=== PATIENT | male | born 1945 | race Caucasian/White ===

== ENCOUNTER 2021-11-14 17:24 | Inpatient (IN) | payer MEDICARE ==
[~2021-11-14] VITALS: Ht 180.3 cm; Wt 72.6 kg
--- NOTE | 2021-11-14 17:40 | NUR ---
PT WHEELED TO ED BED 13 FROM THE WAITING ROOM, PER ADMITTING WAS BIB FACILITY STAFF FOR PSYCH EVAL AND POSSIBLE GEROPSYCH ADMIT. PT IS VERBALLY RESPONSIVE. AAOX3. STABLE VITALS. AWAITINGMD EVAL.
--- NOTE | 2021-11-14 17:46 | NUR ---
CALLED [facility] [phone] MARCELINO Grupo [address] [place] [address] MEMORY CARE UNIT VIOLENT AGRESSIVE DELMER WILL FAX H&P DR. JOSE MUÑIZ CONSULTED WITH DR. KENDRICK AND RECOMMENDED FOR ADMISSION TO GPS TO BE PLACED ON HOLD DTO.
--- NOTE | 2021-11-14 17:54 | NUR ---
DR LEMA AT BEDSIDE FOR EVAL.
--- NOTE | 2021-11-14 18:13 | NUR ---
CFD ENGINEER AT BEDSIDE FOR BLOOD DRAW.
--- NOTE | 2021-11-14 18:25 | NUR ---
COVID SPECIMEN OBTAINED AND SENT TO LAB.
--- NOTE | 2021-11-14 18:54 | NUR ---
URINAL GIVEN BUT UNABLE TO PROVIDE URINE SPECIMEN THIS TIME.
[2021-11-14 20:00] LABS: ALANINE AMINOTRANSFERASE 12 U/L (12-78); ALBUMIN 3.3 g/dL (3.4-5.0); ALKALINE PHOSPHATASE 91 U/L (46-116); ASPARTATE AMINOTRANSFERASE 10 U/L (15-37); BILIRUBIN,DIRECT 0.1 mg/dL (0.0-0.2); CALCIUM, SERUM 9.1 mg/dL (8.5-10.1); CARBON DIOXIDE 30 mmol/L (21-32); CHLORIDE 102 mmol/L (98-107); CREATININE 0.8 mg/dL (0.6-1.3); GLUCOSE 111 mg/dL (74-106); POTASSIUM 4.4 mmol/L (3.5-5.1); SODIUM SERUM 137 mmol/L (136-145); TOTAL PROTEIN, SERUM 7.4 g/dL (6.4-8.2); UREA NITROGEN, BLOOD 13 mg/dL (7-18)
[2021-11-14 20:01] LABS: ACETAMINOPHEN 0 ug/ml (10-30); ALCOHOL, BLOOD < 3 mg/dL (0-0)
[2021-11-14 20:07] LABS: BASOPHILS % (AUTO) 0.2 % (0.0-2.0); EOSINOPHILS % (AUTO) 1.1 % (0.0-6.0); HEMATOCRIT 40 % (39-51); LYMPHOCYTES # (AUTO) 1.6 K/uL (0.8-4.8); MEAN CORPUSCULAR HGB CONC 32 g/dl (31.0-36.0); MEAN CORPUSCULAR VOLUME 89 fL (80-96); MONOCYTES # (AUTO) 0.9 K/uL (0.1-1.30); MONOCYTES % (AUTO) 6.4 % (2.0-12.0); NEUTROPHILS # (AUTO) 10.9 K/uL (1.8-8.9); NEUTROPHILS % (AUTO) 80.3 % (43.0-81.0); PLATELET COUNT (AUTO) 237 K/uL (150-450); RED BLOOD CELL COUNT(AUTO) 4.52 MIL/uL (4.5-6.0); WHITE BLOOD COUNT (AUTO) 13.6 K/uL (4.3-11.0)
[2021-11-14] MEDS ORDERED: LIDOCAINE 2% JEL UROJET 10 ML MM ONE (20:07)
--- NOTE | 2021-11-14 20:19 | NUR ---
URINE COLLECTED AND SENT TO LAB
[2021-11-14 20:51] LABS: BILIRUBIN,URINE NEGATIVE (NEGATIVE); COLOR,URINE YELLOW (YELLOW); LEUKOCYTE ESTERASE ,URINE NEGATIVE (NEGATIVE); NITRITE, URINE NEGATIVE (NEGATIVE); PROTEIN,URINE NEGATIVE (NEGATIVE); UGLUCOSE NEGATIVE (NEGATIVE)
[2021-11-14 21:07] LABS: BACTERIA,URINE None seen /HPF (None Seen); MUCUS,URINE Few /LPF (None Seen); RBC,URINE 0-2 /HPF (0-2); SQUAMOUS EPITHELIAL CELL,UR 0-2 /HPF (None Seen); WBC,URINE 0-2 /HPF (0-3)
--- NOTE | 2021-11-14 22:41 | NUR ---
PT PLACED ON 5150 HOLD BY TONY FOR DTO and GD.
--- NOTE | 2021-11-14 22:59 | NUR ---
REPORT GIVEN TO BEBO VENEGAS RN FOR LUCIAN
[2021-11-15 00:23] LABS: BILIRUBIN,TOTAL 0.3 mg/dL (0.2-1.0)
--- NOTE | 2021-11-15 00:36 | NUR ---
PT TRANSFERRING TO GPS VIA HOSPITAL PROTOCOL. ALL BELONGINGS WITH PT. VSS
[2021-11-15] MEDS ORDERED: UMEC1BLS IH (00:55)
[2021-11-15] MEDS ORDERED: ASPI-1169 PO (00:56)
[2021-11-15] MEDS ORDERED: MAG HYDROX/AL HYDROX/SIMETH 30 ML UDC PO PRN (02:00)
[2021-11-15] MEDS ORDERED: MAGNESIUM HYDROXIDE 30 ML UDC PO PRN (02:00)
[2021-11-15] MEDS ORDERED: BISA-79 PO (02:00)
[2021-11-15] MEDS ORDERED: TEMAZEPAM 7.5 MG CAPSULE PO PRN (02:00)
[2021-11-15] MEDS ORDERED: BLOOD SUGAR DIAGNOSTIC 1 EACH STRIP IN ONE (02:00)
[2021-11-15] MEDS ORDERED: ATOR40TA PO (02:01)
[2021-11-15] MEDS ORDERED: MENT71OI TD (02:03)
[2021-11-15] MEDS ORDERED: MULT1TAB70 PO (02:04)
[2021-11-15] MEDS ORDERED: DOCU100C36 PO (02:06)
[2021-11-15] MEDS ORDERED: DIVA-78 PO (02:06)
[2021-11-15] MEDS ORDERED: FURO20TA4 PO (02:08)
[2021-11-15] MEDS ORDERED: METO25TA6 PO (02:08)
[2021-11-15] MEDS ORDERED: MIDO2.5T PO (02:12)
[2021-11-15] MEDS ORDERED: OMEP20CA15 PO (02:13)
[2021-11-15 02:20] VITALS: BP 128/76
[2021-11-15] MEDS ORDERED: RISP0.5T65 PO (02:30)
[2021-11-15] MEDS ORDERED: POTA20TA83 PO (02:30)
[2021-11-15] MEDS ORDERED: TRAZ-182 PO (02:31)
[2021-11-15] MEDS ORDERED: ALBU2.5V38 NEB (02:33)
--- NOTE | 2021-11-15 02:45 | NUR ---
ADMISSION NOTES: ADMITTED THIS 76Y/O MALE PATIENT ADMIT FROM [facility] , ADMITTED TO GPS ON 5150 HOLD, PER HOLD GD, DTO, INCREASED AGITATION , AGGRESSIVE BEHAVIOR,INCREASED CONFUSION , UPON FACE TO FACE ASSESSMENT PATIENT IS A&O X 2 , CONFUSED, DISORGNIZED, DISHELVED ,EASILY GETS AGITATED, DISORGNIZED , DENIES SI /HI AT THIS TIME, PT. IS POOR HISTORIAN, POOR INSIGHT ,POOR JUDGEMENT, PT. DENIES SI HI AT THIS TIME , BOTH MD AWARE AND NOTIFIED OF THE ADMISSION, BELONGINGS CONTRABAND WERE DONE , PT. REFUSED TO SIGNS ADMISSION CONSENT PAPERS DUE TO MENTAL CONDITION /ANXIOUS ,ENCOURAGED , PT. RIGHTS DISCUSS BY HIGH LIFT DRIVER , PROVIDE THE PT. WITH HANDBOOK, AND MEDICATIONS GUIDE, ENVIRONMENTAL SAFETY CHECK DONE, ENCOURAGED PT. VERBALIZED ANY FEELING CONCERN TO STAFF, ORIENT TO UNIT POLICY, NO ACUTE DISTRESS NOTED,VITAL SIGNS WNL ,DENIES ANY PAIN AT THIS TIME,WILL CONTINUE TO MONITOR FOR Q15 SAFETY AND BEHAVIOR.
[2021-11-15] MEDS ORDERED: Z GUARD REMEDY 4 OZ OINT TP PRN (06:30)
--- NOTE | 2021-11-15 06:57 | NUR ---
RN NOTES: NOTIFIED FAMILY MEMBER REGARDING ABOUT ADMISSION ,JUANPABLO ECHEVARRIA #
[2021-11-15 08:00] VITALS: BP 146/59
--- NOTE | 2021-11-15 10:15 | NUR ---
DALILA Initial Discharge Plan: Patient currently resides at [facility] located at [address] [place] [address]; ([phone]). DALILA will coordinate with the MD and treatment team for appropriate discharge.
[2021-11-15] MEDS: LORAZEPAM 0.5 MG TABLET PO PRN (10:40)
--- NOTE | 2021-11-15 10:40 | NUR ---
GPS/RN ATIVAN 0.5MG ADMINISTERED FRO INCREASED AGITATION ORDERED
--- NOTE | 2021-11-15 10:42 | NUR ---
Treatment Plan: Pt appeared to be confused and refused to sign treatment plan.
--- NOTE | 2021-11-15 11:17 | NUR ---
SW Family Contact: SW spoke with patient's Yudy ([phone]) and discussed treatment and discharge plan. She stated that she would want pt back to [facility] ([phone]). She expressed that if they do not accept pt back then she is open for this SW find a nursing facility.
--- NOTE | 2021-11-15 11:20 | NUR ---
[facility]: DALILA contacted [facility] ([phone]) and spoke with Jany ([phone]) who is the resident coordinator. She reported that prior to discharge they would have have to re-assess pt to see if pt is accepted back.
--- NOTE | 2021-11-15 11:21 | NUR ---
SW Admit Source: Patient currently resides at [facility] located at [address] [place] [address]; ([phone]). Pt was brought to the hospital because he was aggressive at this Memory Care Unit. DALILA spoke with Jany resident coordinator ([phone]) would have to re-assess the pt prior to dc to see if pt is welcomed back. DALILA spoke with Yudy ([phone]) who stated that she is the DPOA and will send the documents. She reported that she would want pt back to [facility] unit and if they do not accept him back she is open for this SW to find pt a nursing facility.
[2021-11-15] MEDS ORDERED: ALBUTEROL FS 2.5 MG/3 ML VIAL.NEB NEB PRN (13:00)
--- NOTE | 2021-11-15 15:35 | NUR ---
DPOA Documents: SW received DPOA documents from patient's Yudy ([phone]). Yudy is the DPOA and documents are placed in the chart.
[2021-11-15 16:00] VITALS: BP 137/75
[2021-11-15] MEDS: risperiDONE 1 MG TABLET PO SCH (17:29)
[2021-11-15] MEDS: DIVALPROEX SODIUM 125 MG CAP.SPRINK PO SCH (17:29)
[2021-11-15] MEDS: BENZTROPINE MESYLATE (1 MG) 1 MG TABLET PO SCH (17:29)
[2021-11-15] MEDS ORDERED: risperiDONE 1 MG TABLET PO SCH (21:00)
[2021-11-15 21:03] VITALS: BP 146/64
[2021-11-15] MEDS: BISACODYL (5 MG) 5 MG TABLET.DR PO SCH (21:36)
[2021-11-15] MEDS: ATORVASTATIN 40 MG TABLET PO SCH (21:36)
--- NOTE | 2021-11-16 08:05 | NUR ---
GPS/RN PT REFUSED VS OFFERED X3. VERBALLY ABUSIVE TOWARD RUBBER CHEMIST AND RN
[2021-11-16] MEDS ORDERED: OMEPRAZOLE 20 MG CAPSULE.DR PO SCH (09:00)
[2021-11-16] MEDS ORDERED: MULTIVITAMINS PO SCH (09:00)
[2021-11-16] MEDS: POTASSIUM CHLORIDE 20 MEQ TAB.PRT.SR PO SCH (09:00)
[2021-11-16] MEDS: FUROSEMIDE 20 MG TABLET PO SCH (09:00)
[2021-11-16] MEDS ORDERED: METOPROLOL TARTRATE 25 MG TABLET PO SCH (09:00)
[2021-11-16] MEDS: METOPROLOL SUCCINATE 25 MG TAB.SR.24H PO SCH (09:00)
[2021-11-16] MEDS: DIVALPROEX SODIUM 125 MG CAP.SPRINK PO SCH ×2 (09:56→16:31)
[2021-11-16] MEDS: ZINC OXIDE 30 GM TUBE TP SCH (09:56)
[2021-11-16] MEDS: BENZTROPINE MESYLATE (1 MG) 1 MG TABLET PO SCH ×2 (09:56→16:31)
[2021-11-16] MEDS: PANTOPRAZOLE 40 MG TABLET.DR PO SCH (09:56)
[2021-11-16] MEDS: FLUTICASONE/VILANTEROL 1 EACH BLST.W.DEV IH SCH (09:56)
[2021-11-16] MEDS: ASPIRIN 81 MG TAB.CHEW PO SCH (09:57)
[2021-11-16] MEDS: risperiDONE 1 MG TABLET PO SCH ×3 (09:59→21:00)
[2021-11-16] MEDS: MULTIVIT W/MINERALS 1 TAB TABLET PO SCH (09:59)
[2021-11-16] MEDS: LORAZEPAM 0.5 MG TABLET PO PRN (10:36)
[2021-11-16 11:51] LABS: BASOPHILS % (AUTO) 0.4 % (0.0-2.0); EOSINOPHILS % (AUTO) 3.8 % (0.0-6.0); HEMATOCRIT 37 % (39-51); HEMOGLOBIN 12.1 g/dL (13.5-17.5); LYMPHOCYTES # (AUTO) 1.9 K/uL (0.8-4.8); LYMPHOCYTES % (AUTO) 22.9 % (20.0-44.0); MEAN CORPUSCULAR HGB CONC 33 g/dl (31.0-36.0); MEAN CORPUSCULAR VOLUME 88 fL (80-96); MONOCYTES # (AUTO) 0.7 K/uL (0.1-1.30); MONOCYTES % (AUTO) 8.2 % (2.0-12.0); NEUTROPHILS # (AUTO) 5.4 K/uL (1.8-8.9); NEUTROPHILS % (AUTO) 64.7 % (43.0-81.0); PLATELET COUNT (AUTO) 220 K/uL (150-450); RED BLOOD CELL COUNT(AUTO) 4.16 MIL/uL (4.5-6.0); WHITE BLOOD COUNT (AUTO) 8.4 K/uL (4.3-11.0)
[2021-11-16 12:37] LABS: CALCIUM, SERUM 8.7 mg/dL (8.5-10.1); CREATININE 0.7 mg/dL (0.6-1.3); POTASSIUM 3.9 mmol/L (3.5-5.1)
[2021-11-16 20:00] VITALS: BP 167/97
[2021-11-16 20:18] VITALS: BP 167/97
[2021-11-16] MEDS: ATORVASTATIN 40 MG TABLET PO SCH (21:42)
[2021-11-16] MEDS: BISACODYL (5 MG) 5 MG TABLET.DR PO SCH (21:42)
--- NOTE | 2021-11-16 21:44 | NUR ---
GPS NURSING NOTES: PT REFUSED RISPERDAL 1MG X 3, PT STATES "STOP IT, GO AWAY, YOU'RE AGITATING ME." PT IS LABILE, GUARDED, AGITATED, REFUSING TO DRINK WATER, AND CLOSING MOUTH. PT IS EDUCATED REGARDING THE RISK OF NON-MED COMPLIANCE, WILL CONTINUE TO MONITOR
[2021-11-17 08:00] VITALS: BP 119/72
[2021-11-17] MEDS: FLUTICASONE/VILANTEROL 1 EACH BLST.W.DEV IH SCH (08:31)
[2021-11-17] MEDS: ZINC OXIDE 30 GM TUBE TP SCH (08:32)
[2021-11-17] MEDS: BENZTROPINE MESYLATE (1 MG) 1 MG TABLET PO SCH ×2 (08:35→16:20)
[2021-11-17] MEDS: DIVALPROEX SODIUM 125 MG CAP.SPRINK PO SCH ×3 (08:35→16:20)
[2021-11-17] MEDS: PANTOPRAZOLE 40 MG TABLET.DR PO SCH (08:36)
[2021-11-17] MEDS: MULTIVIT W/MINERALS 1 TAB TABLET PO SCH (08:37)
[2021-11-17] MEDS: METOPROLOL SUCCINATE 25 MG TAB.SR.24H PO SCH (08:38)
[2021-11-17] MEDS: FUROSEMIDE 20 MG TABLET PO SCH (08:38)
[2021-11-17] MEDS: risperiDONE 1 MG TABLET PO SCH ×2 (08:39→21:00)
[2021-11-17] MEDS: POTASSIUM CHLORIDE 20 MEQ TAB.PRT.SR PO SCH (08:39)
[2021-11-17] MEDS: ASPIRIN 81 MG TAB.CHEW PO SCH (08:40)
[2021-11-17] MEDS: risperiDONE 0.25 MG TABLET PO SCH ×2 (13:50→16:20)
[2021-11-17 16:00] VITALS: BP 136/77
[2021-11-17 19:57] VITALS: BP 132/77
[2021-11-17] MEDS: BISACODYL (5 MG) 5 MG TABLET.DR PO SCH (21:31)
[2021-11-17] MEDS: ATORVASTATIN 40 MG TABLET PO SCH (21:34)
[2021-11-18] MEDS: ACETAMINOPHEN 325 MG TABLET PO PRN (04:30)
[2021-11-18] MEDS: PANTOPRAZOLE 40 MG TABLET.DR PO SCH (06:30)
[2021-11-18 08:00] VITALS: BP 147/79
--- NOTE | 2021-11-18 08:55 | NUR ---
SNF Referral: DALILA sent clinicals to Corrie strong from [facility] ([phone]) for placement option. SW sent H & P, progress notes, and medication list.
[2021-11-18] MEDS: MULTIVIT W/MINERALS 1 TAB TABLET PO SCH (09:00)
[2021-11-18] MEDS: METOPROLOL SUCCINATE 25 MG TAB.SR.24H PO SCH (09:03)
[2021-11-18] MEDS: FUROSEMIDE 20 MG TABLET PO SCH (09:03)
[2021-11-18] MEDS: ASPIRIN 81 MG TAB.CHEW PO SCH (09:03)
[2021-11-18] MEDS: risperiDONE 0.25 MG TABLET PO SCH (09:03)
[2021-11-18] MEDS: DIVALPROEX SODIUM 125 MG CAP.SPRINK PO SCH ×3 (09:04→17:31)
[2021-11-18] MEDS: BENZTROPINE MESYLATE (1 MG) 1 MG TABLET PO SCH ×2 (09:04→17:31)
[2021-11-18] MEDS: FLUTICASONE/VILANTEROL 1 EACH BLST.W.DEV IH SCH (09:21)
[2021-11-18] MEDS: ZINC OXIDE 30 GM TUBE TP SCH (09:21)
[2021-11-18] MEDS: POTASSIUM CHLORIDE 20 MEQ TAB.PRT.SR PO SCH (09:21)
[2021-11-18 16:00] VITALS: BP 122/77
[2021-11-18] MEDS: risperiDONE 1 MG TABLET PO SCH ×2 (17:30→20:47)
[2021-11-18 19:46] VITALS: BP 112/64
[2021-11-18] MEDS: ATORVASTATIN 40 MG TABLET PO SCH (22:00)
[2021-11-18] MEDS: BISACODYL (5 MG) 5 MG TABLET.DR PO SCH (22:00)
--- NOTE | 2021-11-18 22:05 | NUR ---
GPS RN NOTES: PATIENT REFUSED 2200 MEDS, LIPITOR 40MG 1TAB AND DUCOLAX 5MG 2TABS.
[2021-11-19] MEDS: PANTOPRAZOLE 40 MG TABLET.DR PO SCH (07:30)
[2021-11-19 08:00] VITALS: BP 149/57
[2021-11-19] MEDS: FUROSEMIDE 20 MG TABLET PO SCH ×2 (08:31→09:00)
[2021-11-19] MEDS: ASPIRIN 81 MG TAB.CHEW PO SCH ×2 (08:32→09:00)
[2021-11-19] MEDS: METOPROLOL SUCCINATE 25 MG TAB.SR.24H PO SCH ×2 (08:32→09:00)
[2021-11-19] MEDS: DIVALPROEX SODIUM 125 MG CAP.SPRINK PO SCH ×4 (08:32→17:31)
[2021-11-19] MEDS: FLUTICASONE/VILANTEROL 1 EACH BLST.W.DEV IH SCH ×2 (08:33→09:00)
[2021-11-19] MEDS: BENZTROPINE MESYLATE (1 MG) 1 MG TABLET PO SCH ×3 (08:33→17:30)
[2021-11-19] MEDS: ZINC OXIDE 30 GM TUBE TP SCH ×2 (08:33→09:00)
[2021-11-19] MEDS: MULTIVIT W/MINERALS 1 TAB TABLET PO SCH ×2 (08:33→09:00)
[2021-11-19] MEDS: risperiDONE 1 MG TABLET PO SCH ×4 (08:33→21:13)
[2021-11-19] MEDS: POTASSIUM CHLORIDE 20 MEQ TAB.PRT.SR PO SCH ×2 (08:36→09:00)
[2021-11-19] MEDS ORDERED: GUAIFENESIN/CODEINE 10 ML UDC PO PRN (11:00)
[2021-11-19 16:00] VITALS: BP 136/69
[2021-11-19] MEDS: ENSURE ENLIVE 237 ML LIQUID (VANILLA) PO SCH (17:31)
[2021-11-19 20:00] VITALS: BP 144/129
[2021-11-19] MEDS: ATORVASTATIN 40 MG TABLET PO SCH (21:14)
[2021-11-19] MEDS: BISACODYL (5 MG) 5 MG TABLET.DR PO SCH (22:00)
--- NOTE | 2021-11-19 22:01 | NUR ---
GPS RN NOTES: PATIENT REFUSED 2200 DUCOLAX 5MG 2TABS ORDERED.
[2021-11-20] MEDS: PANTOPRAZOLE 40 MG TABLET.DR PO SCH ×2 (07:30→07:43)
[2021-11-20 08:00] VITALS: BP 135/66
[2021-11-20] MEDS: FLUTICASONE/VILANTEROL 1 EACH BLST.W.DEV IH SCH (08:28)
[2021-11-20] MEDS: ENSURE ENLIVE 237 ML LIQUID (VANILLA) PO SCH ×2 (08:28→16:46)
[2021-11-20] MEDS: DIVALPROEX SODIUM 125 MG CAP.SPRINK PO SCH ×4 (08:29→16:45)
[2021-11-20] MEDS: FUROSEMIDE 20 MG TABLET PO SCH ×2 (08:29→08:49)
[2021-11-20] MEDS: POTASSIUM CHLORIDE 20 MEQ TAB.PRT.SR PO SCH ×2 (08:29→08:49)
[2021-11-20] MEDS: risperiDONE 1 MG TABLET PO SCH ×4 (08:29→21:30)
[2021-11-20] MEDS: BENZTROPINE MESYLATE (1 MG) 1 MG TABLET PO SCH ×3 (08:29→16:45)
[2021-11-20] MEDS: MULTIVIT W/MINERALS 1 TAB TABLET PO SCH ×2 (08:30→08:50)
[2021-11-20] MEDS: METOPROLOL SUCCINATE 25 MG TAB.SR.24H PO SCH ×2 (08:30→08:50)
[2021-11-20] MEDS: ZINC OXIDE 30 GM TUBE TP SCH ×2 (08:31→08:50)
[2021-11-20] MEDS: ASPIRIN 81 MG TAB.CHEW PO SCH ×2 (08:37→08:49)
--- NOTE | 2021-11-20 09:12 | NUR ---
DALILA Family: SW spoke with patient's Yudy ([phone]) and stated pt is accepted at [facility]. She was agreeable with this.
[2021-11-20 16:00] VITALS: BP 115/56
--- NOTE | 2021-11-20 19:30 | NUR ---
GPS RN NOTE, RECEIVED PATIENT AWAKE AND IN BED, NO S/S OR COMPLAINTS OF PAIN AT THIS TIME. PATIENT IS DISPLAYING NO S/S OF APPARENT DISTRESS AT THIS TIME. PATIENT BREATHING IS UNLABORED WITH EQUAL RISE AND FALL OF THE CHEST. PATIENT IS ALERT AND ORIENTED X 1 ON ROOM AIR WITH A SPO2 99%. PATIENT IS REFUSING, MEDICATIONS, HYPERVERBAL, YELLING AT TIMES, VERBALLY ABUSIVE, AND UNCOOPERATIVE. PATIENT DENIES SUICIDAL AND HOMICIDAL IDEATIONS AT THIS TIME. PATIENT ASSISTED WITH TURNING AND REPOSITIONING Q2HR AND PRN FOR COMFORT AND CIRCULATION. PATIENT HAS NO NEEDS AT THIS TIME. PATIENT EDUCATED ON THE USE OF THE CALL RIVAS. PATIENT BED SIDE RAILS UP X 2 FOR SAFETY. PATIENT BED IS LOCKED, LOW, WITH BED ALARM ON. WILL CONTINUE TO MONITOR THIS PATIENT Q15 MINUTES WITH THE HELP OF STAFF TO MAINTAIN SAFETY.
[2021-11-20 20:16] VITALS: BP 118/65
[2021-11-20] MEDS: ATORVASTATIN 40 MG TABLET PO SCH (21:30)
[2021-11-20] MEDS: BISACODYL (5 MG) 5 MG TABLET.DR PO SCH (21:30)
[2021-11-21] MEDS: PANTOPRAZOLE 40 MG TABLET.DR PO SCH ×2 (07:30→08:59)
[2021-11-21 08:00] VITALS: BP 156/86
[2021-11-21] MEDS: ENSURE ENLIVE 237 ML LIQUID (VANILLA) PO SCH ×2 (08:00→17:23)
[2021-11-21] MEDS: BENZTROPINE MESYLATE (1 MG) 1 MG TABLET PO SCH ×3 (08:59→17:00)
[2021-11-21] MEDS: MULTIVIT W/MINERALS 1 TAB TABLET PO SCH ×2 (08:59→09:00)
[2021-11-21] MEDS: DIVALPROEX SODIUM 125 MG CAP.SPRINK PO SCH ×4 (08:59→17:00)
[2021-11-21] MEDS: POTASSIUM CHLORIDE 20 MEQ TAB.PRT.SR PO SCH ×2 (08:59→09:00)
[2021-11-21] MEDS: METOPROLOL SUCCINATE 25 MG TAB.SR.24H PO SCH (09:00)
[2021-11-21] MEDS: FLUTICASONE/VILANTEROL 1 EACH BLST.W.DEV IH SCH ×2 (09:00→09:03)
[2021-11-21] MEDS: ASPIRIN 81 MG TAB.CHEW PO SCH (09:00)
[2021-11-21] MEDS: FUROSEMIDE 20 MG TABLET PO SCH (09:00)
[2021-11-21] MEDS: ZINC OXIDE 30 GM TUBE TP SCH ×4 (09:00→10:43)
[2021-11-21] MEDS: risperiDONE 1 MG TABLET PO SCH ×3 (09:00→21:00)
--- NOTE | 2021-11-21 09:45 | NUR ---
Pt. refused to take po meds due for 0900, was explained on the importance and the risk of not taking the meds and told the nurse bad words and refusing to take the meds.
--- NOTE | 2021-11-21 13:30 | NUR ---
Pt. refused to take Depakote due for 1300. Pt. doesn't want to take and started to be irritable when offered and explained the importance.
--- NOTE | 2021-11-21 14:55 | NUR ---
Dr. Syed made aware that [facility] hearing is scheduled tomorrow at 1430 (11/22/21).
--- NOTE | 2021-11-21 15:08 | NUR ---
Court Hearing: Patient's court hearing for 4170 was today and it was upheld for GD and danger to others.
[2021-11-21 16:00] VITALS: BP 156/92
--- NOTE | 2021-11-21 17:09 | NUR ---
Pt. refused meds due for 1699. Explained on the importance and offered 3x and still refusing and getting irritated and when offered.
[2021-11-21 20:00] VITALS: BP 132/80
[2021-11-21] MEDS: BISACODYL (5 MG) 5 MG TABLET.DR PO SCH (21:33)
[2021-11-21] MEDS: ATORVASTATIN 40 MG TABLET PO SCH (21:33)
--- NOTE | 2021-11-21 21:33 | NUR ---
GPS RN NOTES: MEDICATION REFUSAL PATIENT REFUSED SCHEDULED MEDS FOR TONIGHT RISPERDAL, DULCOLAX AND LIPITOR. EXPLAINED RISKS/BENEFITS PATIENT CONTINUED TO REFUSE. DR. AROLDO FRITZ.
[2021-11-22] MEDS: PANTOPRAZOLE 40 MG TABLET.DR PO SCH (07:30)
[2021-11-22 08:00] VITALS: BP 138/63
[2021-11-22] MEDS: ENSURE ENLIVE 237 ML LIQUID (VANILLA) PO SCH ×2 (08:39→17:07)
[2021-11-22] MEDS: METOPROLOL SUCCINATE 25 MG TAB.SR.24H PO SCH (09:00)
[2021-11-22] MEDS: MULTIVIT W/MINERALS 1 TAB TABLET PO SCH (09:00)
[2021-11-22] MEDS: ASPIRIN 81 MG TAB.CHEW PO SCH (09:00)
[2021-11-22] MEDS: POTASSIUM CHLORIDE 20 MEQ TAB.PRT.SR PO SCH (09:00)
[2021-11-22] MEDS: FUROSEMIDE 20 MG TABLET PO SCH (09:00)
[2021-11-22] MEDS: FLUTICASONE/VILANTEROL 1 EACH BLST.W.DEV IH SCH (09:00)
[2021-11-22] MEDS: DIVALPROEX SODIUM 125 MG CAP.SPRINK PO SCH ×3 (09:00→16:10)
[2021-11-22] MEDS: BENZTROPINE MESYLATE (1 MG) 1 MG TABLET PO SCH ×2 (09:00→16:10)
[2021-11-22] MEDS: risperiDONE 1 MG TABLET PO SCH ×3 (09:00→21:00)
--- NOTE | 2021-11-22 09:23 | NUR ---
RN-NOTES PATIENT REFUSED ALL P.O MEDICATIONS DESPITE EXPLANATIONS RISK AND BENEFITS. PATIENT CHANGED HIS MINE NOT TAKING THE MEDICATIONS WHEN THE MEDICATIONS ON HIS HAND.OFFERED X3
--- NOTE | 2021-11-22 12:43 | NUR ---
RN-NOTES PATIENT REFUSED DEPAKOTE SPRINKLE 250MG P.O . OFFERED X3
[2021-11-22 16:00] VITALS: BP 139/79
[2021-11-22] MEDS: OLANZAPINE 10 MG VIAL IM PRN (16:19)
--- NOTE | 2021-11-22 16:27 | NUR ---
RN-NOTES PATIENT REFUSED ALL SCHEDULE MEDICATIONS INCLUDING RISPERDAL 1MG P.O. ZYPREXA 5MG IM GIVEN ORDERED. PATIENT IS RIESE.
[2021-11-22 19:53] VITALS: BP 138/72
[2021-11-22] MEDS: ATORVASTATIN 40 MG TABLET PO SCH (21:46)
[2021-11-22] MEDS: BISACODYL (5 MG) 5 MG TABLET.DR PO SCH (21:46)
--- NOTE | 2021-11-22 21:47 | NUR ---
GPS RN NOTES: MD NOTIFICATION CALLED DR. KENDRICK REGARDING RISPERDAL ORDER Q12H. PATIENT IS REISED WITH BACK UP IM OF ZYPREXA 5MG SCHEDULED AT 2100. OFFERED RISPERDAL PO REFUSED BY PATIENT. NOTIFIED DR. KENDRICK THAT FIRST DOSE OF ZYPREXA IM WAS GIVEN AT 1619. DR. KENDRICK STATED, TO HOLD OFF FOR TONIGHT AND TO GIVE THE NEXT DOSE OF ZYPREXA 5MG IM IN THE MORNING SCHEDULED 11/23/21. PATIENT IS ASLEEP AT THIS TIME. VITAL SIGNS ARE STABLE. WILL CONTINUE TO MONITOR.
[2021-11-23] MEDS: PANTOPRAZOLE 40 MG TABLET.DR PO SCH (07:30)
[2021-11-23 08:00] VITALS: BP 147/74
[2021-11-23] MEDS: DIVALPROEX SODIUM 125 MG CAP.SPRINK PO SCH ×3 (08:31→17:00)
[2021-11-23] MEDS: BENZTROPINE MESYLATE (1 MG) 1 MG TABLET PO SCH ×2 (08:31→17:00)
[2021-11-23] MEDS: FLUTICASONE/VILANTEROL 1 EACH BLST.W.DEV IH SCH (08:31)
[2021-11-23] MEDS: ASPIRIN 81 MG TAB.CHEW PO SCH (08:31)
[2021-11-23] MEDS: MULTIVIT W/MINERALS 1 TAB TABLET PO SCH (08:32)
[2021-11-23] MEDS: POTASSIUM CHLORIDE 20 MEQ TAB.PRT.SR PO SCH (08:32)
[2021-11-23] MEDS: FUROSEMIDE 20 MG TABLET PO SCH (08:32)
[2021-11-23] MEDS: METOPROLOL SUCCINATE 25 MG TAB.SR.24H PO SCH (08:32)
[2021-11-23] MEDS: ZINC OXIDE 30 GM TUBE TP SCH (08:34)
[2021-11-23] MEDS: risperiDONE 1 MG TABLET PO SCH ×2 (08:34→21:00)
[2021-11-23] MEDS: ENSURE ENLIVE 237 ML LIQUID (VANILLA) PO SCH ×2 (09:47→17:00)
[2021-11-23] MEDS: OLANZAPINE 10 MG VIAL IM PRN ×2 (09:47→21:21)
[2021-11-23 16:00] VITALS: BP 150/75
[2021-11-23 19:53] VITALS: BP 148/76
[2021-11-23] MEDS: ATORVASTATIN 40 MG TABLET PO SCH (21:20)
[2021-11-23] MEDS: BISACODYL (5 MG) 5 MG TABLET.DR PO SCH (21:20)
[2021-11-24] MEDS: PANTOPRAZOLE 40 MG TABLET.DR PO SCH (07:30)
[2021-11-24 08:00] VITALS: BP 131/60
[2021-11-24] MEDS: ASPIRIN 81 MG TAB.CHEW PO SCH (08:25)
[2021-11-24] MEDS: POTASSIUM CHLORIDE 20 MEQ TAB.PRT.SR PO SCH (08:25)
[2021-11-24] MEDS: FLUTICASONE/VILANTEROL 1 EACH BLST.W.DEV IH SCH (08:25)
[2021-11-24] MEDS: DIVALPROEX SODIUM 125 MG CAP.SPRINK PO SCH ×3 (08:25→17:00)
[2021-11-24] MEDS: BENZTROPINE MESYLATE (1 MG) 1 MG TABLET PO SCH ×2 (08:25→17:00)
[2021-11-24] MEDS: risperiDONE 1 MG TABLET PO SCH ×2 (08:26→21:00)
[2021-11-24] MEDS: MULTIVIT W/MINERALS 1 TAB TABLET PO SCH (08:26)
[2021-11-24] MEDS: FUROSEMIDE 20 MG TABLET PO SCH (08:26)
[2021-11-24] MEDS: METOPROLOL SUCCINATE 25 MG TAB.SR.24H PO SCH (08:26)
[2021-11-24] MEDS: ENSURE ENLIVE 237 ML LIQUID (VANILLA) PO SCH ×2 (08:27→17:00)
[2021-11-24] MEDS: OLANZAPINE 10 MG VIAL IM PRN ×2 (08:35→21:26)
[2021-11-24] MEDS: ZINC OXIDE 30 GM TUBE TP SCH (08:36)
[2021-11-24 16:00] VITALS: BP 134/59
[2021-11-24 20:00] VITALS: BP 138/76
[2021-11-24] MEDS: ATORVASTATIN 40 MG TABLET PO SCH (21:25)
[2021-11-24] MEDS: BISACODYL (5 MG) 5 MG TABLET.DR PO SCH (21:25)
--- NOTE | 2021-11-24 21:30 | NUR ---
GPS RN NOTES: PATIENT REFUSED SCHEDULED MEDS FOR TONIGHT DULCOLAX AND LIPITOR. EXPLAINED RISKS/BENEFITS PATIENT CONTINUED TO REFUSE. WILL CONTINUE TO MONITOR.
[2021-11-25] MEDS: PANTOPRAZOLE 40 MG TABLET.DR PO SCH ×2 (07:30→08:20)
[2021-11-25] MEDS: ENSURE ENLIVE 237 ML LIQUID (VANILLA) PO SCH ×2 (07:46→16:16)
[2021-11-25 08:00] VITALS: BP 146/88
[2021-11-25] MEDS: FUROSEMIDE 20 MG TABLET PO SCH ×2 (08:18→09:00)
[2021-11-25] MEDS: DIVALPROEX SODIUM 125 MG CAP.SPRINK PO SCH ×4 (08:19→16:36)
[2021-11-25] MEDS: METOPROLOL SUCCINATE 25 MG TAB.SR.24H PO SCH ×2 (08:19→09:00)
[2021-11-25] MEDS: MULTIVIT W/MINERALS 1 TAB TABLET PO SCH ×2 (08:19→09:00)
[2021-11-25] MEDS: POTASSIUM CHLORIDE 20 MEQ TAB.PRT.SR PO SCH ×2 (08:20→09:00)
[2021-11-25] MEDS: risperiDONE 1 MG TABLET PO SCH ×2 (08:20→09:00)
[2021-11-25] MEDS: ASPIRIN 81 MG TAB.CHEW PO SCH ×2 (08:20→09:00)
[2021-11-25] MEDS: BENZTROPINE MESYLATE (1 MG) 1 MG TABLET PO SCH ×3 (08:20→16:36)
[2021-11-25] MEDS: ZINC OXIDE 30 GM TUBE TP SCH (09:00)
[2021-11-25] MEDS: FLUTICASONE/VILANTEROL 1 EACH BLST.W.DEV IH SCH (09:00)
[2021-11-25] MEDS: OLANZAPINE 10 MG VIAL IM PRN (09:18)
--- NOTE | 2021-11-25 09:26 | NUR ---
PT REFUSED AM MEDS. ZYPREXA 5MG GIVEN VIA IM. WILL CONTINUE TO MONITOR. Addendum: 11/25/21 at 0928 by BITA GOLD RN SHAUNA
--- NOTE | 2021-11-25 10:35 | NUR ---
ENTERED EKG ORDER STAT PER DR KENDRICK.
--- NOTE | 2021-11-25 11:16 | NUR ---
EKG DONE AND RESULTED. DR KENDRICK CALLED. PER DR AROLDO WHITE WILL SEE PATIENT.
[2021-11-25] MEDS ORDERED: PALIPERIDONE PALMITATE 117 MG IM ONE (14:30)
[2021-11-25] MEDS ORDERED: OLANZAPINE 10 MG VIAL IM PRN (14:30)
--- NOTE | 2021-11-25 15:08 | NUR ---
INVEGA 117MG IM GIVEN BY CN. 0.75ML FROM 1.5 ML 234MG VIAL. WILL CONTINUE TO MONITOR.
[2021-11-25 16:28] VITALS: BP 120/70
[2021-11-25 19:50] VITALS: BP 132/76
[2021-11-25] MEDS: ATORVASTATIN 40 MG TABLET PO SCH (22:00)
[2021-11-25] MEDS: BISACODYL (5 MG) 5 MG TABLET.DR PO SCH (22:00)
--- NOTE | 2021-11-25 22:01 | NUR ---
GPS RN NOTES: PATIENT REFUSED 2200 LIPITOR 40MG AND DUCOLAX 10MG. WILL CONTINUE TO ONITOR.
[2021-11-26] MEDS: PANTOPRAZOLE 40 MG TABLET.DR PO SCH (07:30)
[2021-11-26 08:00] VITALS: BP 135/55
[2021-11-26] MEDS: ENSURE ENLIVE 237 ML LIQUID (VANILLA) PO SCH ×2 (08:00→16:32)
[2021-11-26] MEDS: BENZTROPINE MESYLATE (1 MG) 1 MG TABLET PO SCH ×2 (08:59→16:32)
[2021-11-26] MEDS: DIVALPROEX SODIUM 125 MG CAP.SPRINK PO SCH ×3 (08:59→16:32)
[2021-11-26] MEDS: FLUTICASONE/VILANTEROL 1 EACH BLST.W.DEV IH SCH (08:59)
[2021-11-26] MEDS: FUROSEMIDE 20 MG TABLET PO SCH (08:59)
[2021-11-26] MEDS: ASPIRIN 81 MG TAB.CHEW PO SCH (08:59)
[2021-11-26] MEDS: POTASSIUM CHLORIDE 20 MEQ TAB.PRT.SR PO SCH (08:59)
[2021-11-26] MEDS: ZINC OXIDE 30 GM TUBE TP SCH (09:00)
[2021-11-26] MEDS: MULTIVIT W/MINERALS 1 TAB TABLET PO SCH (09:00)
[2021-11-26] MEDS: METOPROLOL SUCCINATE 25 MG TAB.SR.24H PO SCH (09:00)
[2021-11-26] MEDS ORDERED: HALOPERIDOL LACTATE INJ 5 MG/ML VIAL IM PRN (10:30)
[2021-11-26] MEDS: risperiDONE 1 MG TABLET PO SCH (12:20)
[2021-11-26 16:00] VITALS: BP 133/90
[2021-11-26 20:00] VITALS: BP 139/97
[2021-11-26] MEDS: BISACODYL (5 MG) 5 MG TABLET.DR PO SCH (21:51)
[2021-11-26] MEDS: ATORVASTATIN 40 MG TABLET PO SCH (21:51)
[2021-11-27] MEDS: ENSURE ENLIVE 237 ML LIQUID (VANILLA) PO SCH ×2 (07:21→16:59)
[2021-11-27] MEDS: PANTOPRAZOLE 40 MG TABLET.DR PO SCH (07:30)
[2021-11-27 08:00] VITALS: BP 127/72
[2021-11-27] MEDS: FLUTICASONE/VILANTEROL 1 EACH BLST.W.DEV IH SCH (08:44)
[2021-11-27] MEDS: MULTIVIT W/MINERALS 1 TAB TABLET PO SCH (08:45)
[2021-11-27] MEDS: POTASSIUM CHLORIDE 20 MEQ TAB.PRT.SR PO SCH (08:45)
[2021-11-27] MEDS: ASPIRIN 81 MG TAB.CHEW PO SCH (08:45)
[2021-11-27] MEDS: FUROSEMIDE 20 MG TABLET PO SCH (08:45)
[2021-11-27] MEDS: DIVALPROEX SODIUM 125 MG CAP.SPRINK PO SCH ×3 (08:45→17:00)
[2021-11-27] MEDS: BENZTROPINE MESYLATE (1 MG) 1 MG TABLET PO SCH ×2 (08:45→17:00)
[2021-11-27] MEDS: METOPROLOL SUCCINATE 25 MG TAB.SR.24H PO SCH (08:45)
[2021-11-27] MEDS: ZINC OXIDE 30 GM TUBE TP SCH (08:45)
[2021-11-27] MEDS: risperiDONE 1 MG TABLET PO SCH (12:35)
[2021-11-27 16:00] VITALS: BP 139/84
[2021-11-27 20:00] VITALS: BP 136/57
[2021-11-27] MEDS: ACETAMINOPHEN 325 MG TABLET PO PRN (21:43)
--- NOTE | 2021-11-27 21:54 | NUR ---
GPS RN NOTES: Patient c/o right arm and right shoulder pain. Tylenol 650mg given PO at 2143. Will continue to monitor.
[2021-11-27] MEDS: ATORVASTATIN 40 MG TABLET PO SCH (22:00)
[2021-11-27] MEDS: BISACODYL (5 MG) 5 MG TABLET.DR PO SCH (22:00)
--- NOTE | 2021-11-27 22:07 | NUR ---
GPS RN NOTES: PATIENT REFUSED 2200 MEDS DULCOLAX 10MG AND LIPITOR 40MG ORDERED. WILL CONTINUE TO MONITOR.
--- NOTE | 2021-11-27 22:11 | NUR ---
GPS RN NOTES: DULCOLAX 5MG/2TABS AND LIPITOR 40MG/1TAB RETURNED TO OMNICELL.
[2021-11-28] MEDS: PANTOPRAZOLE 40 MG TABLET.DR PO SCH (07:30)
[2021-11-28 08:00] VITALS: BP 148/60
[2021-11-28] MEDS: ENSURE ENLIVE 237 ML LIQUID (VANILLA) PO SCH ×2 (08:07→17:13)
[2021-11-28] MEDS: ZINC OXIDE 30 GM TUBE TP SCH (09:00)
[2021-11-28] MEDS: FLUTICASONE/VILANTEROL 1 EACH BLST.W.DEV IH SCH (09:00)
[2021-11-28] MEDS: ASPIRIN 81 MG TAB.CHEW PO SCH (09:10)
[2021-11-28] MEDS: MULTIVIT W/MINERALS 1 TAB TABLET PO SCH (09:10)
[2021-11-28] MEDS: DIVALPROEX SODIUM 125 MG CAP.SPRINK PO SCH ×3 (09:10→16:27)
[2021-11-28] MEDS: POTASSIUM CHLORIDE 20 MEQ TAB.PRT.SR PO SCH (09:10)
[2021-11-28] MEDS: BENZTROPINE MESYLATE (1 MG) 1 MG TABLET PO SCH ×2 (09:10→16:27)
[2021-11-28] MEDS: METOPROLOL SUCCINATE 25 MG TAB.SR.24H PO SCH (09:11)
[2021-11-28] MEDS: FUROSEMIDE 20 MG TABLET PO SCH (09:11)
[2021-11-28] MEDS ORDERED: CLONIDINE HCL 0.2MG/24H PTWK 1 EA PATCH TD SCH (10:00)
[2021-11-28] MEDS: risperiDONE 1 MG TABLET PO SCH (12:06)
[2021-11-28 16:00] VITALS: BP 119/57
[2021-11-28 19:53] VITALS: BP 145/71
[2021-11-28 20:00] VITALS: BP 145/71
[2021-11-28] MEDS: BISACODYL (5 MG) 5 MG TABLET.DR PO SCH (22:00)
[2021-11-28] MEDS: ATORVASTATIN 40 MG TABLET PO SCH (22:00)
--- NOTE | 2021-11-28 22:14 | NUR ---
GPS RN NOTE: MEDICATION REFUSAL PATIENT REFUSED TO TAKE DULCOLAX TAB 10 MG AND LIPITOR 40 MG X 3 , DESPITE OF RISKS AND BENEFITS EXPLANATIONS, PATIENT CONTINUED TO REFUSE, GOT AGITATED, ANXIOUS AND STATED, " LET ME SLEEP, DON'T COME HERE."
--- NOTE | 2021-11-29 07:09 | NUR ---
GPS RN NOTE PATIENT SLEPT WELL AT NIGHT. NO BEHAVIORAL EPISODE NOTED, REDIRECTABLE. COOPERATIVE WITH [facility] CARE THROUGHOUT THE NIGHT. WILL ENDORSE TO AM RN FOR CONTINUITY OF CARE.
[2021-11-29] MEDS: ENSURE ENLIVE 237 ML LIQUID (VANILLA) PO SCH ×2 (07:57→16:34)
[2021-11-29] MEDS: PANTOPRAZOLE 40 MG TABLET.DR PO SCH (07:58)
[2021-11-29 08:00] VITALS: BP 125/79
[2021-11-29] MEDS: MULTIVIT W/MINERALS 1 TAB TABLET PO SCH (08:26)
[2021-11-29] MEDS: ASPIRIN 81 MG TAB.CHEW PO SCH (08:26)
[2021-11-29] MEDS: POTASSIUM CHLORIDE 20 MEQ TAB.PRT.SR PO SCH (08:26)
[2021-11-29] MEDS: FUROSEMIDE 20 MG TABLET PO SCH (08:26)
[2021-11-29] MEDS: DIVALPROEX SODIUM 125 MG CAP.SPRINK PO SCH ×3 (08:26→16:33)
[2021-11-29] MEDS: METOPROLOL SUCCINATE 25 MG TAB.SR.24H PO SCH (08:27)
[2021-11-29] MEDS: BENZTROPINE MESYLATE (1 MG) 1 MG TABLET PO SCH ×2 (08:27→16:33)
[2021-11-29] MEDS: ZINC OXIDE 30 GM TUBE TP SCH (08:28)
[2021-11-29] MEDS: FLUTICASONE/VILANTEROL 1 EACH BLST.W.DEV IH SCH (08:36)
--- NOTE | 2021-11-29 10:59 | NUR ---
DALILA Family Contact: DALILA notified Yudy ([phone]) that pt will discharge Saturday 12/02 to [facility] and she was agreeable with this.
[2021-11-29 16:00] VITALS: BP 100/63
[2021-11-29 19:45] VITALS: BP 112/74
[2021-11-29 20:05] VITALS: BP 112/74
[2021-11-29] MEDS: ATORVASTATIN 40 MG TABLET PO SCH (21:52)
[2021-11-29] MEDS: BISACODYL (5 MG) 5 MG TABLET.DR PO SCH (21:52)
[2021-11-30 06:58] LABS: BASOPHILS # (AUTO) 0.1 K/uL (0.0-0.2); BASOPHILS % (AUTO) 0.8 % (0.0-2.0); EOSINOPHILS % (AUTO) 4.2 % (0.0-6.0); HEMATOCRIT 39 % (39-51); LYMPHOCYTES # (AUTO) 2.6 K/uL (0.8-4.8); LYMPHOCYTES % (AUTO) 27.1 % (20.0-44.0); MEAN CORPUSCULAR HGB CONC 33 g/dl (31.0-36.0); MEAN CORPUSCULAR VOLUME 87 fL (80-96); MONOCYTES # (AUTO) 0.8 K/uL (0.1-1.30); MONOCYTES % (AUTO) 8.3 % (2.0-12.0); NEUTROPHILS # (AUTO) 5.8 K/uL (1.8-8.9); NEUTROPHILS % (AUTO) 59.6 % (43.0-81.0); PLATELET COUNT (AUTO) 231 K/uL (150-450); RED BLOOD CELL COUNT(AUTO) 4.48 MIL/uL (4.5-6.0); WHITE BLOOD COUNT (AUTO) 9.7 K/uL (4.3-11.0)
[2021-11-30] MEDS: PANTOPRAZOLE 40 MG TABLET.DR PO SCH (07:30)
[2021-11-30 08:00] VITALS: BP 130/77
[2021-11-30 08:46] LABS: ALBUMIN 2.7 g/dL (3.4-5.0); BILIRUBIN,TOTAL 0.3 mg/dL (0.2-1.0); CALCIUM, SERUM 8.7 mg/dL (8.5-10.1); CREATININE 0.7 mg/dL (0.6-1.3); PHOSPHORUS 4.2 mg/dL (2.5-4.9); POTASSIUM 4.6 mmol/L (3.5-5.1); TOTAL PROTEIN, SERUM 6.4 g/dL (6.4-8.2)
[2021-11-30] MEDS: FLUTICASONE/VILANTEROL 1 EACH BLST.W.DEV IH SCH (09:11)
[2021-11-30] MEDS: ENSURE ENLIVE 237 ML LIQUID (VANILLA) PO SCH ×2 (09:11→17:30)
[2021-11-30] MEDS: MULTIVIT W/MINERALS 1 TAB TABLET PO SCH (09:14)
[2021-11-30] MEDS: DIVALPROEX SODIUM 125 MG CAP.SPRINK PO SCH ×3 (09:14→17:31)
[2021-11-30] MEDS: BENZTROPINE MESYLATE (1 MG) 1 MG TABLET PO SCH ×2 (09:14→17:31)
[2021-11-30] MEDS: ASPIRIN 81 MG TAB.CHEW PO SCH (09:14)
[2021-11-30] MEDS: POTASSIUM CHLORIDE 20 MEQ TAB.PRT.SR PO SCH (09:15)
[2021-11-30] MEDS: ZINC OXIDE 30 GM TUBE TP SCH (09:15)
[2021-11-30] MEDS: FUROSEMIDE 20 MG TABLET PO SCH (09:15)
[2021-11-30] MEDS: METOPROLOL SUCCINATE 25 MG TAB.SR.24H PO SCH (09:15)
[2021-11-30] MEDS: LORAZEPAM 0.5 MG TABLET PO PRN (09:42)
[2021-11-30 16:00] VITALS: BP 146/66
[2021-11-30 20:10] VITALS: BP 104/73
[2021-11-30] MEDS: BISACODYL (5 MG) 5 MG TABLET.DR PO SCH (21:32)
[2021-11-30] MEDS: ATORVASTATIN 40 MG TABLET PO SCH (21:32)
[2021-12-01] MEDS: PANTOPRAZOLE 40 MG TABLET.DR PO SCH (07:25)
[2021-12-01] MEDS: LORAZEPAM 0.5 MG TABLET PO PRN (07:25)
[2021-12-01] MEDS: ENSURE ENLIVE 237 ML LIQUID (VANILLA) PO SCH ×2 (07:26→17:45)
[2021-12-01] MEDS: FLUTICASONE/VILANTEROL 1 EACH BLST.W.DEV IH SCH (07:45)
[2021-12-01] MEDS: FUROSEMIDE 20 MG TABLET PO SCH (07:55)
[2021-12-01] MEDS: POTASSIUM CHLORIDE 20 MEQ TAB.PRT.SR PO SCH (07:55)
[2021-12-01] MEDS: DIVALPROEX SODIUM 125 MG CAP.SPRINK PO SCH ×3 (07:55→17:46)
[2021-12-01] MEDS: ASPIRIN 81 MG TAB.CHEW PO SCH (07:56)
[2021-12-01] MEDS: MULTIVIT W/MINERALS 1 TAB TABLET PO SCH (07:56)
[2021-12-01] MEDS: METOPROLOL SUCCINATE 25 MG TAB.SR.24H PO SCH (07:56)
[2021-12-01] MEDS: BENZTROPINE MESYLATE (1 MG) 1 MG TABLET PO SCH ×2 (07:57→17:46)
[2021-12-01] MEDS: ZINC OXIDE 30 GM TUBE TP SCH (07:58)
[2021-12-01 08:00] VITALS: BP 120/86
[2021-12-01 16:00] VITALS: BP 123/72
[2021-12-01 20:20] VITALS: BP 129/52
[2021-12-01] MEDS: ATORVASTATIN 40 MG TABLET PO SCH (22:00)
[2021-12-01] MEDS: BISACODYL (5 MG) 5 MG TABLET.DR PO SCH (22:00)
--- NOTE | 2021-12-01 22:11 | NUR ---
GPS RN NOTES: PATIENT REFUSED 2200 LIPITOR 40MG AND DULCOLAX 10MG.
--- NOTE | 2021-12-02 03:31 | NUR ---
GPS RN NOTES: WEEKLY SKIN ASSESSMENT DONE. PICTURES TAKEN AND PLACED IN PATIENT CHART, NO NEW SKIN ISSUES NOTED.
--- NOTE | 2021-12-02 06:47 | NUR ---
GPS RN CLOSING NOTES: PATIENT LAYING IN BED, AWAKE, A/O X1-2. PATIENT SLEPT 7HR THIS SHIFT. COVID SWAB COLLECTED AND SENT TO LAB FOR DISCHARGE PURPOSES. PATIENT CLEANED AND DIAPER CHANGED. PATIENT REPOSITIONED PER HOSPITAL PROTOCOL. NO S/S OF DISTRESS. RESPIRATION EVEN AND UNLABORED WITH EQUAL RISE AND FALL OF THE CHEST, ON ROOM AIR. BED IN LOW LOCKED POSITION, SIDE RAILS UP X2 FOR SAFETY. ALL PATIENT CARE NEEDS HAVE BEEN MET ANTICIPATED. WILL CONTINUE TO MONITOR AND ENDORSE TO AM SHIFT.
[2021-12-02 08:00] VITALS: BP 120/53
--- NOTE | 2021-12-02 08:07 | NUR ---
SW Discharge Note: Patient will be discharged to [facility] located at [address] [place] [id number]; ([phone]) via ambulance. Baylee james from [facility] accepted pt and is welcoming pt today. Pts Yudy ([phone]) is aware and agreeable of dc. Patient appears to be alert and oriented x3 and is willing to go to the nursing facility. Pt denies visual/auditory hallucinations. Pt denies denies suicidal or homicidal ideation. Patient will follow-up with (psychiatrist) Dr. Syed [address] [facility] [address], [place] [address]; ([phone]). Patient will follow up with (carton filler) Dr. Wyatt [address] [facility] [address], [place] [address]; ([phone]). Patient presents with euthymic mood and congruent affect.
[2021-12-02] MEDS: POTASSIUM CHLORIDE 20 MEQ TAB.PRT.SR PO SCH (08:56)
[2021-12-02] MEDS: MULTIVIT W/MINERALS 1 TAB TABLET PO SCH (08:56)
[2021-12-02] MEDS: DIVALPROEX SODIUM 125 MG CAP.SPRINK PO SCH ×3 (08:56→17:00)
[2021-12-02] MEDS: ASPIRIN 81 MG TAB.CHEW PO SCH (08:56)
[2021-12-02] MEDS: BENZTROPINE MESYLATE (1 MG) 1 MG TABLET PO SCH ×2 (08:57→17:00)
[2021-12-02] MEDS: FLUTICASONE/VILANTEROL 1 EACH BLST.W.DEV IH SCH (08:57)
[2021-12-02] MEDS: PANTOPRAZOLE 40 MG TABLET.DR PO SCH (08:57)
[2021-12-02] MEDS: ENSURE ENLIVE 237 ML LIQUID (VANILLA) PO SCH ×2 (08:57→17:00)
[2021-12-02] MEDS: METOPROLOL SUCCINATE 25 MG TAB.SR.24H PO SCH (08:58)
[2021-12-02] MEDS: FUROSEMIDE 20 MG TABLET PO SCH (09:00)
[2021-12-02] MEDS: ZINC OXIDE 30 GM TUBE TP SCH (09:00)
[2021-12-02 16:00] VITALS: BP 128/57
[2021-12-02] MEDS ORDERED: risperiDONE 1 MG TABLET PO SCH (17:00)
--- NOTE | 2021-12-02 20:22 | NUR ---
GPS CLAIM AUDITOR NOTES: PATIENT DISCHARGED AT [address] [facility] [place] [address] [place] [address], ([phone]) VIA AMBULANCE. RADHA PARKS FROM [facility] ACCEPTED PATIENT AND IS WELCOMING PATIENT TODAY. PT'S SWATHI ([phone]) IS AWARE AND AGREEABLE OF DC. PATIENT APPEARS TO BE A/O X2 AND IS WILLING TO GO TO THE NURSING FACILITY. PATIENT DENIES V/A HALLUCINATIONS. PATIENT DENIES SUICIDAL OR HOMICIDAL IDEATION. PATIENT WILL FOLLOW UP WITH (PSYCHIATRIST) DR KENDRICK [address] [facility] [address], [place] [address], ([phone]). PATIENT WILL FOLLOW UP WITH DIGITAL SOLUTION ARCHITECT DR BAUMAN [address] [facility] [address], [place] [address], ([phone]. PATIENT PRESENTS WITH EUTHYMIC MOOD AND CONGRUENT AFFECT. REPORT WAS GIVEN TO SARAH AT [facility]. PATIENT RIGHT EAR HEARING AID GIVEN TO AMBULANCE STAFF TO DELIVER WITH PATIENT TO FACILITY STAFF UPON ARRIVAL.
== END 2021-12-02 19:55 | DRG 885 ==
LOC: ER 17:27 → GPS 23:51
PROVIDERS: ADMIT Psychiatry & Neurology Psychosomatic Medicine; ATTEND Nurse Practitioner Acute Care
DX: F20.9 Schizophrenia, unspecified (principal); F29 Unspecified psychosis not due to a substance or known physiological condition; I10 Essential (primary) hypertension; N40.0 Benign prostatic hyperplasia without lower urinary tract symptoms; Z86.73 Personal history of transient ischemic attack (TIA), and cerebral infarction without residual deficits; K21.9 Gastro-esophageal reflux disease without esophagitis; F39 Unspecified mood [affective] disorder; F03.90 Unspecified dementia, unspecified severity, without behavioral disturbance, psychotic disturbance, mood disturbance, and anxiety; J44.9 Chronic obstructive pulmonary disease, unspecified; Z91.19 Patient's noncompliance with other medical treatment and regimen; D72.829 Elevated white blood cell count, unspecified; Z73.6 Limitation of activities due to disability; R53.1 Weakness; R94.31 Abnormal electrocardiogram [ECG] [EKG]; Z20.822 Contact with and (suspected) exposure to COVID-19
CPT/HCPCS: 36415; 80048-TC; 80053-TC; 80061-TC; 80076-TC; 80164-TC; 81001; 82962-TC; 83735-TC; 84100-TC; 85025-TC; 87081-TC; 97110-TC; 97112-TC; 97116-TC; 97530-TC; C9803; G0480; J3490

== ENCOUNTER 2021-12-16 15:19 | Inpatient (IN) | payer MEDICARE, OTHER ==
[~2021-12-16] VITALS: Ht 175.3 cm; Wt 77.6 kg
[~2021-12-16 15:19] MED LIST: ALBU2.5V38 NEB; ASPI-1169 PO; ATOR40TA PO; BISA-79 PO; FURO20TA4 PO; MENT71OI TD; METO25TA6 PO; MIDO2.5T PO; MULT1TAB70 PO; OMEP20CA15 PO; POTA20TA83 PO; UMEC1BLS IH
--- NOTE | 2021-12-16 15:30 | NUR ---
BBIP 76 yrs male came by pramdic c/o neck pain eyes closed no respratory distress hob 45 @ pt confused unable to to got medical INFORMATION FROM PT stiff
[2021-12-16] MEDS ORDERED: MAG30ORA PO (15:42)
[2021-12-16] MEDS ORDERED: PANT40TA2 PO (15:42)
[2021-12-16] MEDS ORDERED: MULT-447 PO (15:42)
[2021-12-16] MEDS ORDERED: ACET-868 PO (15:42)
[2021-12-16] MEDS ORDERED: METO25TA4 PO (15:42)
[2021-12-16] MEDS ORDERED: CLON1PAT2 TD (15:42)
[2021-12-16] MEDS ORDERED: BENZ1TAB7 PO (15:42)
[2021-12-16] MEDS ORDERED: RISP0.2515 PO (15:42)
[2021-12-16] MEDS ORDERED: FLUT1BLS IH (15:42)
[2021-12-16] MEDS ORDERED: LORA-259 PO (15:42)
[2021-12-16] MEDS ORDERED: DIVA125C2 PO (15:42)
[2021-12-16] MEDS ORDERED: TEMA7.5C12 PO (15:43)
--- NOTE | 2021-12-16 15:45 | NUR ---
seen BY DR. PABON INSERTED ANGO CATH # 20 ON RT HAND BLOOD DROW AND SEEN TO LAB
--- NOTE | 2021-12-16 16:10 | NUR ---
COVID SWAB DONE AND SENT TO LAB
[2021-12-16 16:18] LABS: BASOPHILS # (AUTO) 0.1 K/uL (0.0-0.2); BASOPHILS % (AUTO) 0.3 % (0.0-2.0); EOSINOPHILS % (AUTO) 0.1 % (0.0-6.0); HEMATOCRIT 47 % (39-51); HEMOGLOBIN 15.5 g/dL (13.5-17.5); LYMPHOCYTES # (AUTO) 1.4 K/uL (0.8-4.8); LYMPHOCYTES % (AUTO) 4.8 % (20.0-44.0); MEAN CORPUSCULAR HGB CONC 33 g/dl (31.0-36.0); MEAN CORPUSCULAR VOLUME 87 fL (80-96); MONOCYTES # (AUTO) 2.3 K/uL (0.1-1.30); MONOCYTES % (AUTO) 8.3 % (2.0-12.0); NEUTROPHILS # (AUTO) 24.4 K/uL (1.8-8.9); NEUTROPHILS % (AUTO) 86.5 % (43.0-81.0); PLATELET COUNT (AUTO) 280 K/uL (150-450); RED BLOOD CELL COUNT(AUTO) 5.41 MIL/uL (4.5-6.0); WHITE BLOOD COUNT (AUTO) 28.2 K/uL (4.3-11.0)
[2021-12-16 16:43] LABS: ALANINE AMINOTRANSFERASE 17 U/L (12-78); ALBUMIN 3.1 g/dL (3.4-5.0); ALKALINE PHOSPHATASE 90 U/L (46-116); ASPARTATE AMINOTRANSFERASE 17 U/L (15-37); BILIRUBIN,DIRECT 0.2 mg/dL (0.0-0.2); BILIRUBIN,TOTAL 0.6 mg/dL (0.2-1.0); CALCIUM, SERUM 9.4 mg/dL (8.5-10.1); CARBON DIOXIDE 29 mmol/L (21-32); CHLORIDE 107 mmol/L (98-107); CREATININE 0.9 mg/dL (0.6-1.3); GLUCOSE 125 mg/dL (74-106); POTASSIUM 3.9 mmol/L (3.5-5.1); SODIUM SERUM 146 mmol/L (136-145); TOTAL PROTEIN, SERUM 7.7 g/dL (6.4-8.2); UREA NITROGEN, BLOOD 19 mg/dL (7-18)
[2021-12-16] MEDS ORDERED: IOHEXOL-300 100 ML VIAL IV ONE (16:53)
[2021-12-16] MEDS ORDERED: IV NS 0.9% 250 ML IV ONE (16:53)
[2021-12-16] MEDS ORDERED: CT SWABBABLE VALVE TRANS SET 1 EA INFUS.SET MC ONE (16:53)
--- NOTE | 2021-12-16 17:53 | NUR ---
Resting at this time no sob coughing and congeted
--- NOTE | 2021-12-16 18:25 | NUR ---
SWATHI [phone]
[2021-12-16] MEDS ORDERED: VANCOMYCIN 1 GM in IV D5W 250 ML IV ONE (18:30)
[2021-12-16] MEDS ORDERED: PIPERACILLIN /TAZOBACTAM 3.375 G in IV D5W 50 ML IV ONE (18:30)
[2021-12-16] MEDS ORDERED: VANCOMYCIN 1 GM VIAL ONE (18:52)
[2021-12-16] MEDS ORDERED: PIPERACILLIN /TAZOBACTAM 3.375 G VIAL IV ONE (18:52)
--- NOTE | 2021-12-16 18:56 | NUR ---
blood culture x2 blood drow by lab tach and lacticacid
--- NOTE | 2021-12-16 19:00 | NUR ---
hand off to nahid gamboa vs stable
[2021-12-16] MEDS ORDERED: IV D5/0.45 NACL 1,000 ML IV PRN (19:30)
[2021-12-16] MEDS ORDERED: ONDANSETRON HCL/PF 4 MG/2 ML VIAL IVP PRN (19:30)
[2021-12-16] MEDS ORDERED: ACETAMINOPHEN 325 MG TABLET PO PRN (19:30)
--- NOTE | 2021-12-16 19:31 | NUR ---
WINDOW CUTTER AT PT'S BEDSIDE
--- NOTE | 2021-12-16 19:58 | NUR ---
TELE [id number]
--- NOTE | 2021-12-16 20:11 | NUR ---
REPORT GIVEN TO ROSELIA MARES
--- NOTE | 2021-12-16 20:12 | NUR ---
TRANSFERRING PATIENT TO [facility] VIA ACLS.
[2021-12-16 20:30] VITALS: BP 137/93
--- NOTE | 2021-12-16 20:30 | NUR ---
RN ADMITTING NOTE PATIENT REPORT RECEIVED FROM JEFFREY VELOZ. PATIENT FROM [facility] BEING ADMITTED FOR [facility]PS[facility]. PATIENT A/O X 1 AT THIS TIME, RESISTS WHEN GIVING CARE. PATIENT HAS A R HAND 20 G, PATENT AND INTACT, FLUSHING WELL. PATIENT'S SKIN ISSUES DOCUMENTED AND PHOTOS TAKEN. VSS UPON TRANSFER. PATIENT'S TELE MONITOR READS ST 111 AT THIS TIME. PATIENT HAS POLST DNR. ORIENTED PATIENT TO RM, RN, CHICK GRADER. SAFETY MEASURES IN PLACE: BED LOCKED AND IN LOWEST POSITION, CALL LIGHT WITHIN REACH, SIDE RAILS UP. WILL MONITOR PATIENT CLOSELY.
[2021-12-16] MEDS: ENOXAPARIN SODIUM 40 MG/0.4 ML DISP.SYRIN SQ SCH (21:29)
[2021-12-16] MEDS: PANTOPRAZOLE 40 MG VIAL IV SCH (21:34)
[2021-12-16] MEDS: PIPERACILLIN /TAZOBACTAM 3.375 G in IV D5W 100 ML IV SCH (23:52)
[2021-12-17] VITALS: BP 138/66
[2021-12-17 04:00] VITALS: BP 126/43
--- NOTE | 2021-12-17 06:22 | NUR ---
RN CLOSING NOTE PATIENT SEEN IN BED, SLEEPING. PATIENT STABLE ON RA WITH 94-95% O2 SATURATION. MILD COUGH NOTED. TELE MONITOR READS ST 105 BPM WITH BBB. PATIENT NPO STATUS MAINTAINED. R HAND 20 G PATENT AND INTACT WITH D5 1/2 NS AT 75 ML/HR RUNNING. PATIENT NOT IN ANY APPARENT DISTRESS. SAFETY MEASURES IMPLEMENTED: BED LOCKED AND IN LOWEST POSITION, CALL LIGHT WITHIN REACH, SIDE RAILS UP. ALL NEEDS MET AND ATTENDED. ALL ORDERS CARRIED OUT. WILL ENDORSE TO DAY SHIFT NURSE FOR LUCIAN.
[2021-12-17 07:06] LABS: BASOPHILS # (AUTO) 0.1 K/uL (0.0-0.2); BASOPHILS % (AUTO) 0.2 % (0.0-2.0); EOSINOPHILS % (AUTO) 0.1 % (0.0-6.0); HEMATOCRIT 42 % (39-51); HEMOGLOBIN 13.6 g/dL (13.5-17.5); LYMPHOCYTES # (AUTO) 1.5 K/uL (0.8-4.8); LYMPHOCYTES % (AUTO) 5.6 % (20.0-44.0); MEAN CORPUSCULAR HGB CONC 33 g/dl (31.0-36.0); MEAN CORPUSCULAR VOLUME 88 fL (80-96); MONOCYTES # (AUTO) 2.9 K/uL (0.1-1.30); MONOCYTES % (AUTO) 10.6 % (2.0-12.0); NEUTROPHILS # (AUTO) 22.9 K/uL (1.8-8.9); NEUTROPHILS % (AUTO) 83.5 % (43.0-81.0); PLATELET COUNT (AUTO) 243 K/uL (150-450); RED BLOOD CELL COUNT(AUTO) 4.76 MIL/uL (4.5-6.0); WHITE BLOOD COUNT (AUTO) 27.4 K/uL (4.3-11.0)
--- NOTE | 2021-12-17 07:15 | NUR ---
RN OPENING NOTE RECEIVED PATIENT IN BED, RESTING. PATIENT IS BREATHING EVENLY AND NONLABORED STABLE ON RA. PATIENT TELE MONITOR PATIENT NPO STATUS MAINTAINED. R HAND 20 G PATENT AND INTACT WITH D5 1/2 NS AT 75 ML/HR RUNNING. PATIENT NOT IN ANY APPARENT DISTRESS OR PAIN. SAFETY MEASURES IMPLEMENTED: BED LOCKED AND IN LOWEST POSITION, CALL LIGHT WITHIN REACH, SIDE RAILS UP. WILL CONTINUE TO MONITOR
[2021-12-17] MEDS: VANCOMYCIN 0.75 GM in IV D5W 250 ML IV SCH ×2 (07:31→20:09)
[2021-12-17 07:36] LABS: CALCIUM, SERUM 8.8 mg/dL (8.5-10.1); CREATININE 1.1 mg/dL (0.6-1.3); MAGNESIUM 2.2 mg/dL (1.8-2.4); PHOSPHORUS 3.1 mg/dL (2.5-4.9); POTASSIUM 3.1 mmol/L (3.5-5.1)
[2021-12-17 08:00] VITALS: BP 137/74
[2021-12-17] MEDS: PANTOPRAZOLE 40 MG VIAL IV SCH (08:31)
[2021-12-17] MEDS: PIPERACILLIN /TAZOBACTAM 3.375 G in IV D5W 100 ML IV SCH ×2 (08:31→15:29)
--- NOTE | 2021-12-17 09:12 | NUR ---
WOUND CARE CONSULT: DIFFICULT ASSESSMENT DUE TO PT BECOMING AGITATED AND COMBATIVE. PT NOTED TO HAVE AREAS OF SKIN DISCOLORATION AND SACRAL INTACT DEEP TISSUE INJURY WITH SURROUNDING SCARRING, PRESENT ON ADMISSION. RECOMMENDATIONS MADE FOR SKIN PROTECTION. DISCUSSED WITH NURSING STAFF. PT TO BE PLACED ON TRAVIS ISOFLEX LOW AIRLOSS BED. IN AGREEMENT WITH PLAN OF CARE. Addendum: 12/17/21 at 0913 by ALEX BASHIR WNDNU Amended: Links added.
[2021-12-17] MEDS: Z GUARD REMEDY 4 OZ OINT TP SCH (09:15)
[2021-12-17] MEDS ORDERED: Z GUARD REMEDY 4 OZ OINT TP PRN (09:30)
[2021-12-17] MEDS: POTASSIUM CL. PREMIX PERIPHER. 50 ML IV SCH ×4 (10:21→13:22)
[2021-12-17 16:00] VITALS: BP 137/65
--- NOTE | 2021-12-17 18:34 | NUR ---
RN CLOSING NOTE PATIENT IN BED, RESTING. PATIENT IS BREATHING EVENLY AND NONLABORED STABLE ON RA. PATIENT TELE MONITOR PATIENT NPO STATUS MAINTAINED. R HAND 20 G PATENT AND INTACT WITH D5 1/2 NS AT 75 ML/HR RUNNING. PATIENT NOT IN ANY APPARENT DISTRESS OR PAIN. PATIENT WAS COMBATIVE DURING REPOSITIONINGS. MD GAVE ORDER FOR WRIST RESTRAINTS IF HITTING STAFF. Q15 MIN SAFETY CHECKS DONE. PATIENT TURNED AND REPOSITIONED PER PROTOCOL. ALL MEDICATIONS GIVEN ORDERED. SAFETY MEASURES IMPLEMENTED: BED LOCKED AND IN LOWEST POSITION, CALL LIGHT WITHIN REACH, SIDE RAILS UP. WILL ENDORSE TO ONCOMING SHIFT
--- NOTE | 2021-12-17 19:30 | NUR ---
RN OPENING NOTE PATIENT EYES OPEN, A/O X 1 STILL CONFUSED, UNABLE TO FOLLOW COMMANDS. PATIENT STABLE ON RA WITH 94-95% O2 SATURATION. MILD COUGH NOTED. TELE MONITOR READS ST 104 BPM WITH BBB. PATIENT NPO AT THIS TIME PENDING SWALLOW EVAL. R HAND 20 G PATENT AND INTACT WITH D5 1/2 NS AT 75 ML/HR RUNNING. PATIENT NOT IN ANY APPARENT DISTRESS. SAFETY MEASURES IMPLEMENTED: BED LOCKED AND IN LOWEST POSITION, CALL LIGHT WITHIN REACH, SIDE RAILS UP. WILL MONITOR PATIENT CLOSELY
[2021-12-17 20:00] VITALS: BP 143/60
[2021-12-17] MEDS: ENOXAPARIN SODIUM 40 MG/0.4 ML DISP.SYRIN SQ SCH (20:10)
--- NOTE | 2021-12-17 22:00 | NUR ---
RN notes Received a critical lab from Jaden aguilar. Pt's blood culture resulted in gram + cocci in cluster. Primary RN is aware and informed.
[2021-12-18] VITALS: BP 110/63
[2021-12-18] MEDS: PIPERACILLIN /TAZOBACTAM 3.375 G in IV D5W 100 ML IV SCH ×4 (00:47→23:49)
[2021-12-18 04:00] VITALS: BP 114/61
--- NOTE | 2021-12-18 06:46 | NUR ---
RN CLOSING NOTE PATIENT SLEEPING A/O X 1 STILL CONFUSED, UNABLE TO FOLLOW COMMANDS. PATIENT STABLE ON RA WITH 96% O2 SATURATION. TELE MONITOR READS ST 101 BPM WITH BBB. PATIENT NPO STATUS PENDING SWALLOW EVAL. R HAND 20 G PATENT AND INTACT WITH D5 1/2 NS AT 75 ML/HR RUNNING. PATIENT NOT IN ANY APPARENT DISTRESS. SAFETY MEASURES IMPLEMENTED: BED LOCKED AND IN LOWEST POSITION, CALL LIGHT WITHIN REACH, SIDE RAILS UP. ALL NEEDS MET AND ATTENDED. ALL ORDERS CARRIED OUT. WILL ENDORSE TO DAY SHIFT NURSE FOR LUCIAN.
--- NOTE | 2021-12-18 07:10 | NUR ---
RN OPENING NOTE RECEIVED PATIENT IN BED, RESTING. PATIENT IS A/O X1 CONFUSED WITH EPISODES OF COMBATIVE DURING POSITION CHANGES. PATIENT IS BREATHING EVENLY AND NONLABORED STABLE ON RA. PATIENT TELE MONITOR PATIENT NPO STATUS MAINTAINED AT THIS TIME, NO SPEECH EVAL AVAILABLE, TRIED NURSING SWALLOW EVAL FAILED WILL MAKE HEALTH INFORMATION TECHNICIAN AWARE. R HAND 20 G PATENT AND INTACT WITH D5 1/2 NS AT 75 ML/HR RUNNING. PATIENT NOT IN ANY APPARENT DISTRESS OR PAIN. SAFETY MEASURES IMPLEMENTED: BED LOCKED AND IN LOWEST POSITION, CALL LIGHT WITHIN REACH, SIDE RAILS UP. WILL CONTINUE TO MONITOR
[2021-12-18 07:12] LABS: CALCIUM, SERUM 8.2 mg/dL (8.5-10.1); CREATININE 0.9 mg/dL (0.6-1.3); POTASSIUM 3.4 mmol/L (3.5-5.1)
[2021-12-18 08:09] VITALS: BP 111/58
[2021-12-18] MEDS: PANTOPRAZOLE 40 MG VIAL IV SCH (08:11)
[2021-12-18] MEDS: Z GUARD REMEDY 4 OZ OINT TP SCH (08:11)
[2021-12-18] MEDS: VANCOMYCIN 0.75 GM in IV D5W 250 ML IV SCH ×2 (08:11→19:50)
[2021-12-18 08:36] LABS: BASOPHILS # (AUTO) 0.1 K/uL (0.0-0.2); BASOPHILS % (AUTO) 0.2 % (0.0-2.0); EOSINOPHILS % (AUTO) 1.2 % (0.0-6.0); HEMATOCRIT 39 % (39-51); HEMOGLOBIN 12.3 g/dL (13.5-17.5); LYMPHOCYTES # (AUTO) 2.3 K/uL (0.8-4.8); LYMPHOCYTES % (AUTO) 10.8 % (20.0-44.0); MEAN CORPUSCULAR HGB CONC 32 g/dl (31.0-36.0); MEAN CORPUSCULAR VOLUME 89 fL (80-96); MONOCYTES % (AUTO) 9.3 % (2.0-12.0); NEUTROPHILS # (AUTO) 16.8 K/uL (1.8-8.9); NEUTROPHILS % (AUTO) 78.5 % (43.0-81.0); PLATELET COUNT (AUTO) 197 K/uL (150-450); RED BLOOD CELL COUNT(AUTO) 4.36 MIL/uL (4.5-6.0); WHITE BLOOD COUNT (AUTO) 21.4 K/uL (4.3-11.0)
[2021-12-18] MEDS: POTASSIUM CL. PREMIX PERIPHER. 50 ML IV SCH ×2 (10:13→11:10)
--- NOTE | 2021-12-18 15:30 | NUR ---
RN NOTE PATIENT WAS EVALUATED BY SPEECH THERAPIST. FAILED SWALLOW EVAL. CRACKLE LUNG SOUNDS NOTED UPON AUSCULTATION, MD NOTIFIED, CHEST XRAY ORDERED.
[2021-12-18 16:00] VITALS: BP 101/73
--- NOTE | 2021-12-18 18:37 | NUR ---
RN CLOSING NOTE PATIENT RESTING IN BED A/O X 1 STILL CONFUSED, UNABLE TO FOLLOW COMMANDS. PATIENT STABLE ON RA WITH 96% O2 SATURATION. TELE MONITOR IN PLACE. PATIENT NPO STATUS MAINTAINED PATIENT FAILED SWALLOW EVAL THIS MORNING. R HAND 20 G PATENT AND INTACT WITH D5 1/2 NS AT 75 ML/HR RUNNING. PATIENT WAS TURNED AND REPOSITIONED PER PROTOCOL. PATIENT NOT IN ANY APPARENT DISTRESS. SAFETY MEASURES IMPLEMENTED: BED LOCKED AND IN LOWEST POSITION, CALL LIGHT WITHIN REACH, SIDE RAILS UP. ALL MEDICATIONS GIVEN ORDERED. WILL ENDORSE TO ONCOMING SHIFT
--- NOTE | 2021-12-18 19:30 | NUR ---
CIGARETTE VENDOR NOTES RECEIVED ON BED A/O X1,GARBLED SPEECH NOTED,IVF D5 1/2 NS AT 75ML/HR RATE,INFUSING IN RIGHT HAND VIA IV PUMP.FALL PRECAUTION OBSERVED, BED ON LOWEST POSITION AND LOCKED,BED ALARM TRIGGERED,DNR STATUS.ON BILATERAL SOFT WRIST RESTRAINTS FOR SAFETY.REPOSITION PER PROTOCOL,CALL LIGHT IN REACH,NEEDS ANTICIPATED.
[2021-12-18 20:00] VITALS: BP 129/65
[2021-12-18 20:51] VITALS: BP 129/65
[2021-12-18] MEDS: ENOXAPARIN SODIUM 40 MG/0.4 ML DISP.SYRIN SQ SCH (21:05)
[2021-12-19] VITALS (7 sets, daily range): BP systolic 100–140; BP diastolic 55–81
--- NOTE | 2021-12-19 06:35 | NUR ---
VP NOTES NO SIGNIFICANT CHANGE IN STATUS,FREQUENT ORAL SUCTION FOR MUCUS,REPOSITION PER PROTOCOL,KEPT NPO ORDERED,FOR SWALLOW THIS MORNING,IN NO ACUTE DISTRESS.
--- NOTE | 2021-12-19 07:39 | NUR ---
RN OPENING NOTES PATIENT AWAKE, A/O X1. NO S/S OF PAIN NOTED AT THIS TIME. PATIENT ON ROOM AIR, NO DISTRESS OR SHORTNESS OF BREATH. IV ACCESS R HAND #20G, INTACT, PATENT AND FLUSHING WELL. PATIENT ON EXTERNAL OSTEOPATHY DOCTOR CURRENT READING OF S.R. WITH BB AND HR OF 79. FALL AND SAFETY MEASURES IN PLACE, BED ALARM ON, BED IN LOW AND LOCK POSITION, CALL LIGHT AND TABLE WITHIN EASY REACH, SIDE RAILS UP X2. WILL CONTINUE TO MONITOR.
[2021-12-19] MEDS: PANTOPRAZOLE 40 MG VIAL IV SCH (08:25)
[2021-12-19] MEDS: VANCOMYCIN 0.75 GM in IV D5W 250 ML IV SCH (08:25)
[2021-12-19] MEDS: Z GUARD REMEDY 4 OZ OINT TP SCH (09:22)
[2021-12-19] MEDS: IV D5/ 0.9% NACL 1,000 ML IV PRN (10:02)
[2021-12-19] MEDS: PIPERACILLIN /TAZOBACTAM 3.375 G in IV D5W 100 ML IV SCH ×3 (10:05→23:56)
[2021-12-19 10:53] LABS: BASOPHILS # (AUTO) 0.1 K/uL (0.0-0.2); BASOPHILS % (AUTO) 0.3 % (0.0-2.0); EOSINOPHILS % (AUTO) 1.3 % (0.0-6.0); HEMATOCRIT 39 % (39-51); HEMOGLOBIN 12.6 g/dL (13.5-17.5); LYMPHOCYTES # (AUTO) 1.6 K/uL (0.8-4.8); LYMPHOCYTES % (AUTO) 8.8 % (20.0-44.0); MEAN CORPUSCULAR HGB CONC 32 g/dl (31.0-36.0); MEAN CORPUSCULAR VOLUME 89 fL (80-96); MONOCYTES # (AUTO) 1.6 K/uL (0.1-1.30); MONOCYTES % (AUTO) 8.7 % (2.0-12.0); NEUTROPHILS # (AUTO) 14.8 K/uL (1.8-8.9); NEUTROPHILS % (AUTO) 80.9 % (43.0-81.0); PLATELET COUNT (AUTO) 219 K/uL (150-450); RED BLOOD CELL COUNT(AUTO) 4.44 MIL/uL (4.5-6.0); WHITE BLOOD COUNT (AUTO) 18.3 K/uL (4.3-11.0)
[2021-12-19 11:02] LABS: CALCIUM, SERUM 8.7 mg/dL (8.5-10.1); CREATININE 0.8 mg/dL (0.6-1.3); POTASSIUM 3.4 mmol/L (3.5-5.1)
--- NOTE | 2021-12-19 18:47 | NUR ---
RN CLOSING NOTES PATIENT AWAKE IN BED RESTING, A/O X1, UNABLE TO FOLLOW COMMANDS. NO S/S OF PAIN NOTED AT THIS TIME. PATIENT ON ROOM AIR, NO DISTRESS OR SHORTNESS OF BREATH. IV ACCESS R HAND #20G, INTACT, PATENT AND FLUSHING WELL. PATIENT ON EXTERNAL FURNITURE ARRANGER CURRENT READING OF S.R. WITH BB AND HR OF 92. ALL SCHEDULE MEDS ADMINISTERED. PATIENT WAS TURNED AND REPOSITIONED PER PROTOCOL. FALL AND SAFETY MEASURES IN PLACE, BED ALARM ON, BED IN LOW AND LOCK POSITION, CALL LIGHT AND TABLE WITHIN EASY REACH, SIDE RAILS UP X2. WILL ENDORSE TO SPLICING TECHNICIAN NURSE.
--- NOTE | 2021-12-19 19:35 | NUR ---
RN NOTES RECEIVED PATIENT A/OX1, SR WITH BBB ON TELE MONITOR HR-88, CRACKLING SOUND NOTED- ASKED RESPIRATORY THERAPY TO DO DEEP SUCTIONING. NOT IN DISTRESS, NO PAIN NOTED, SIDERAILSUPX2, WILL CONTINUE TO MONITOR
[2021-12-19] MEDS: VANCOMYCIN 1 GM in IV D5W 250 ML IV SCH (20:00)
[2021-12-19] MEDS: ENOXAPARIN SODIUM 40 MG/0.4 ML DISP.SYRIN SQ SCH (20:10)
[2021-12-20] VITALS: BP 138/57
[2021-12-20 00:01] VITALS: BP 138/52
--- NOTE | 2021-12-20 03:28 | NUR ---
RN NOTES PATIENT HAS CRACKLING SOUND , GOT AN ORDER OF BREATHING TREATMENT Q4 HRS. PRN, ORDER NOTED AND CARRIED OUT
[2021-12-20] MEDS: ALBUTEROL FS 2.5 MG/3 ML VIAL.NEB NEB PRN (03:54)
[2021-12-20 04:16] VITALS: BP 118/66
--- NOTE | 2021-12-20 06:40 | NUR ---
RN NOTES NEW IV ACCESS WAS INSERTED ON THE RIGHT WRIST #22, MORNING CARE RENDERED, NOT IN DISTRESS, NO PAIN NOTED, SIDERAILSUP2, PT. NEEDS ATTENDED
--- NOTE | 2021-12-20 07:25 | NUR ---
RN OPENING NOTES RECEIVED PATIENT A/OX1, AUDIBLE CRACKLES WITH POOR COUGH EFFORT. SUCTION SET UP AT BEDSIDE. NO SIGNS OF DISTRESS NOTED AT THIS TIME. R HAND ACCESS G#22 INTACT AND PATENT. SAFETY MEASURES IN PLACE: SIDE RAILS UP X2, HOB ELEVATED, BED IN LOWEST POSITION WITH WHEELS LOCKED, CALL LIGHT WITHIN REACH.
[2021-12-20 08:06] LABS: CALCIUM, SERUM 8.8 mg/dL (8.5-10.1); CREATININE 1.2 mg/dL (0.6-1.3); POTASSIUM 3.4 mmol/L (3.5-5.1)
[2021-12-20] MEDS: VANCOMYCIN 1 GM in IV D5W 250 ML IV SCH (08:21)
[2021-12-20] MEDS: PANTOPRAZOLE 40 MG VIAL IV SCH (08:51)
[2021-12-20] MEDS: PIPERACILLIN /TAZOBACTAM 3.375 G in IV D5W 100 ML IV SCH ×3 (09:50→23:03)
[2021-12-20 10:10] LABS: BASOPHILS # (AUTO) 0.1 K/uL (0.0-0.2); BASOPHILS % (AUTO) 0.3 % (0.0-2.0); EOSINOPHILS % (AUTO) 1.2 % (0.0-6.0); HEMATOCRIT 40 % (39-51); HEMOGLOBIN 12.7 g/dL (13.5-17.5); LYMPHOCYTES # (AUTO) 1.6 K/uL (0.8-4.8); LYMPHOCYTES % (AUTO) 9.3 % (20.0-44.0); MEAN CORPUSCULAR HGB CONC 32 g/dl (31.0-36.0); MEAN CORPUSCULAR VOLUME 88 fL (80-96); MONOCYTES # (AUTO) 1.6 K/uL (0.1-1.30); MONOCYTES % (AUTO) 9.3 % (2.0-12.0); NEUTROPHILS # (AUTO) 13.8 K/uL (1.8-8.9); NEUTROPHILS % (AUTO) 79.9 % (43.0-81.0); PLATELET COUNT (AUTO) 256 K/uL (150-450); RED BLOOD CELL COUNT(AUTO) 4.51 MIL/uL (4.5-6.0); WHITE BLOOD COUNT (AUTO) 17.2 K/uL (4.3-11.0)
[2021-12-20] MEDS: Z GUARD REMEDY 4 OZ OINT TP SCH (10:43)
[2021-12-20] MEDS: POTASSIUM CL. PREMIX PERIPHER. 50 ML IV SCH ×3 (10:52→14:37)
--- NOTE | 2021-12-20 13:00 | NUR ---
RN NOTES PATIENT TRANSFERRED OFF UNIT VIA BED ACCOMPANIED BY [address] OF HEAD EXAM.
[2021-12-20] MEDS ORDERED: POTASSIUM CL. PREMIX PERIPHER. 50 ML IV SCH (15:00)
--- NOTE | 2021-12-20 16:30 | NUR ---
RN NOTES NGT PLACEMENT ORDERED BY DR MARIE. ORDERS CARRIED OUT.
--- NOTE | 2021-12-20 16:45 | NUR ---
RN NOTES CHEST XRAY PERFORMED FOR NGT PLACEMENT. WILL FOLLOW UP WITH RESULTS.
--- NOTE | 2021-12-20 18:54 | NUR ---
RN OPENING NOTES RECEIVED PATIENT A/OX1, AUDIBLE CRACKLES WITH POOR COUGH EFFORT. SUCTION SET UP AT BEDSIDE. NO SIGNS OF DISTRESS NOTED AT THIS TIME. R HAND ACCESS G#22 INTACT AND PATENT. NGT PLACED, PENDING CHEST XRAY RESULTS FOR CORRECT PLACEMENT AND OKAY TO USE BY . ALL ORDERS CARRIED OUT AND NEEDS MET. SAFETY MEASURES IN PLACE: SIDE RAILS UP X2, HOB ELEVATED, BED IN LOWEST POSITION WITH WHEELS LOCKED, CALL LIGHT WITHIN REACH. WILL ENDORSE TO PROOF READER NURSE FOR [facility] Addendum: 12/20/21 at 1950 by PEG IBRAHIM RN DOCUMENTATION CORRECTION. RN CLOSING NOTES, NOT OPENING NOTES.
--- NOTE | 2021-12-20 19:15 | NUR ---
TELE/RN OPENING NOTE RECEIVED PATIENT SLEEPING IN BED. ALERT AND ORIENTED X 1. NO S/SX OF PAIN NOTED AT THIS TIME. CONTINUES ON O2 2L VIA NC WITH NO S/SX OF RESPIRATORY DISTRESS NOTED. IV ACCESS TO RIGHT HAND #22G INTACT AND PATENT. CONTINUES ON IVF D5NS @ 80ML/HR. CONTINUES ON IV ABX. NGT IN PLACE TO RIGHT NARE. AWAITING CXR RESULT TO CONFIRM PLACEMENT. PATIENT CONTINUES ON NPO STATUS. CONTINUES ON TELE MONITOR WITH CURRENT READING SR. CONTINUES ON BILATERAL SOFT WRIST RESTRAINTS WITH POSITIVE CIRCULATION AND NO SKIN ISSUES NOTED. CALL LIGHT WITHIN REACH. ASPIRATION, FALL AND SAFETY PRECAUTIONS MAINTAINED. WILL CONTINUE TO MONITOR.
[2021-12-20 20:00] VITALS: BP 113/79
[2021-12-20] MEDS: IV D5/ 0.9% NACL 1,000 ML IV PRN (20:16)
[2021-12-20] MEDS: ENOXAPARIN SODIUM 40 MG/0.4 ML DISP.SYRIN SQ SCH (20:45)
[2021-12-21] VITALS (7 sets, daily range): BP systolic 89–141; BP diastolic 52–96
--- NOTE | 2021-12-21 06:10 | NUR ---
TELE/RN CLOSING NOTE PATIENT CURRENTLY SLEEPING IN BED. ALERT AND ORIENTED X 1. NO S/SX OF PAIN NOTED AT THIS TIME. CONTINUES ON O2 2L VIA NC WITH NO S/SX OF RESPIRATORY DISTRESS NOTED. IV ACCESS TO RIGHT HAND #22G INTACT AND PATENT. CONTINUES ON IVF D5NS @ 80ML/HR. CONTINUES ON IV ABX. NGT IN PLACE TO LEFT NARE WITH POSITIVE PLACEMENT CONFIRMED FROM CXR. NEW ORDER FOR TUBE FEEDING JEVITY 1.2. PATIENT CONTINUES ON NPO STATUS. CONTINUES ON TELE MONITOR WITH CURRENT READING SR WITH BBB. CONTINUES ON BILATERAL SOFT WRIST RESTRAINTS WITH POSITIVE CIRCULATION AND NO SKIN ISSUES NOTED. CALL LIGHT WITHIN REACH. ASPIRATION, FALL AND SAFETY PRECAUTIONS MAINTAINED. WILL ENDORSE PLAN OF CARE TO ONCOMING SHIFT.
[2021-12-21] MEDS ORDERED: JEVITY 1.2 CAL 1,000 ML BOTTLE GT PRN (07:00)
[2021-12-21 07:11] LABS: CALCIUM, SERUM 8.6 mg/dL (8.5-10.1); CARBON DIOXIDE 27 mmol/L (21-32); CHLORIDE 112 mmol/L (98-107); CREATININE 1.6 mg/dL (0.6-1.3); GLUCOSE 134 mg/dL (74-106); POTASSIUM 3.5 mmol/L (3.5-5.1); SODIUM SERUM 148 mmol/L (136-145); UREA NITROGEN, BLOOD 11 mg/dL (7-18)
--- NOTE | 2021-12-21 07:30 | NUR ---
OIL PAINTER OPENING NOTE PATIENT ASLEEP IN BED, EASY TO AROUSE. A/O X 1, CONFUSED, UNABLE TO FOLLOW COMMANDS. NO S/SX OF DISTRESS NOTED. BREATHING IS EVEN AND UNLABORED WITH AUDIBLE CRACKLES. PT WITH EXTERNAL BICYCLE TECHNICIAN WITH READING SR WITH BBB 98. PT WITH NG TUBE L NARE PATENT AND INTACT. IV ACCESS RHAND#22 PATENT AND INTACT WITH D5NS RUNNING @ 80MLS/HR. SAFETY MEASURES IN PLACE WITH BED LOCKED AT LOWEST POSITION WITH SIDE RAILS UP X 2. CALL LIGHT IS WITHIN REACH. WILL CONTINUE TO MONITOR PATIENT THROUGHOUT SHIFT.
[2021-12-21] MEDS: PIPERACILLIN /TAZOBACTAM 3.375 G in IV D5W 100 ML IV SCH (08:08)
[2021-12-21] MEDS: PANTOPRAZOLE 40 MG VIAL IV SCH (08:08)
[2021-12-21] MEDS: Z GUARD REMEDY 4 OZ OINT TP SCH (08:09)
[2021-12-21] MEDS ORDERED: VANCOMYCIN 0.75 GM in IV D5W 250 ML IV SCH (09:00)
--- NOTE | 2021-12-21 10:00 | NUR ---
RN NOTE JEVITY 1.2 TUBE FEEDING STARTED AT THIS TIME
[2021-12-21] MEDS ORDERED: CLINDAMYCIN IV RTU IN D5W 900 MG/50 ML PIGGYBACK IV SCH (12:00)
[2021-12-21] MEDS: CLINDAMYCIN 900 MG in IV D5W 50 ML IV SCH ×2 (13:01→20:58)
[2021-12-21] MEDS: IV D5/ 0.9% NACL 1,000 ML IV PRN (18:41)
--- NOTE | 2021-12-21 18:50 | NUR ---
HARDWARE TEST ENGINEER CLOSING NOTE PATIENT AWAKE IN BED WITH EYES OPEN. A/O X 1, CONFUSED, UNABLE TO FOLLOW COMMANDS. NO S/SX OF DISTRESS NOTED. BREATHING IS EVEN LABORED. PT WITH EXTERNAL HARDWARE TEST ENGINEER WITH READING SR WITH BBB 80S. PT WITH NG TUBE L NARE PATENT AND INTACT WITH JEVITY 1.2 FEEDING @50MLS/HR. IV ACCESS RHAND#22 PATENT AND INTACT WITH D5NS RUNNING @ 80MLS/HR. SAFETY MEASURES MAINTAINED. CALL LIGHT IS WITHIN REACH. ALL NEEDS MET THROUGHOUT SHIFT. WILL ENDORSE CONTINUITY OF CARE TO ONCOMING SHIFT.
--- NOTE | 2021-12-21 19:45 | NUR ---
DAM OPERATOR NOTES RECEIVED ON BED,NON VERBAL,BREATHING EVEN AND UNLABORED,IVF D5NS AT 80ML/HR RATE INFUSING WELL ON RIGHT HAND,SITE PATENT.WITH NGT FEEDING OF JEVITY 1.2% AT 30CC ML/HR RATE,NO RESIDUAL VOLUME NOTED.REPOSITION Q 2 HOURS PER PROTOCOL,WILL CONTINUE TO MONITOR STATUS.
[2021-12-21] MEDS: ENOXAPARIN SODIUM 40 MG/0.4 ML DISP.SYRIN SQ SCH (21:00)
[2021-12-22] VITALS: BP 140/63
[2021-12-22 04:00] VITALS: BP 111/57
[2021-12-22] MEDS: CLINDAMYCIN 900 MG in IV D5W 50 ML IV SCH ×3 (04:30→20:32)
--- NOTE | 2021-12-22 06:31 | NUR ---
CLINIC CLERK NOTES IN BED COUGHING ON AND OFF,FREQUENT SUCTIONING FOR MUCUS DONE,NEEDS DEEP SUCTIONING BY RT.MORNING CARE RENDERED,TOLERATED WELL,HOB ELEVATED,JEVITY IN PROGRESS,NO RESIDUAL VOLUME NOTED.REMAINS ON SOFT BILATERAL WRIST RESTRAINTS FOR SAFETY.REPOSITION PER PROTOCOL,IN NO ACUTE DISTRESS.
[2021-12-22 07:09] LABS: CALCIUM, SERUM 8.7 mg/dL (8.5-10.1); CARBON DIOXIDE 30 mmol/L (21-32); CHLORIDE 117 mmol/L (98-107); CREATININE 1.5 mg/dL (0.6-1.3); GLUCOSE 117 mg/dL (74-106); POTASSIUM 3.8 mmol/L (3.5-5.1); SODIUM SERUM 154 mmol/L (136-145); UREA NITROGEN, BLOOD 13 mg/dL (7-18)
--- NOTE | 2021-12-22 07:30 | NUR ---
STOCKHOLDER OPENING NOTE PATIENT ASLEEP IN BED, EASILY AROUSED. A/O X 1, UNABLE TO FOLLOW COMMANDS. NO S/SX OF DISTRESS NOTED. ON O2 @2LPM VIA N/C, BREATHING IS EVEN AND UNLABORED. WITH EXTERNAL KNEE BOLTER WITH READING SR WITH BBB HR @79. PATIENT WITH NG TUBE L NARE PATENT AND INTACT, WITH FEEDING OF JEVITY 1.2 @ 50 ML/HR RUNNING. ASPIRATIONS PRECAUTIONS OBSERVED. WITH IV ACCESS ON RIGHT HAND#22 PATENT AND INTACT WITH D5NS INFUSING WELL @ 80MLS/HR. SAFETY MEASURES IN PLACE, BED LOCKED AT LOWEST POSITION WITH SIDE RAILS UP X 2. CALL LIGHT IS WITHIN REACH. WILL CONTINUE TO MONITOR PATIENT.
[2021-12-22 08:36] VITALS: BP 116/82
[2021-12-22] MEDS: PANTOPRAZOLE 40 MG VIAL IV SCH (08:38)
[2021-12-22] MEDS: Z GUARD REMEDY 4 OZ OINT TP SCH (08:39)
[2021-12-22] MEDS: IV D5W 1,000 ML IV PRN (09:14)
[2021-12-22 11:38] VITALS: BP 155/58
[2021-12-22 15:50] VITALS: BP 130/74
--- NOTE | 2021-12-22 18:50 | NUR ---
RN CLOSING NOTES PATIENT ASLEEP IN BED. NO SIGNIFICANT EVENTS THIS SHIFT. REMAINS ON O2 @2LPM VIA N/C, BREATHING IS EVEN AND UNLABORED. NG TUBE TO L NARE PATENT AND INTACT, WITH FEEDING OF JEVITY 1.2 @ 50 ML/HR RUNNING. STILL WITH EPISODES OF COUGHING. SUCTIONED SECRETIONS PRN. ASPIRATIONS PRECAUTIONS OBSERVED. WITH IV ACCESS ON RIGHT HAND#22 PATENT AND INTACT WITH D5W @ 80MLS/HR INFUSING WELL. SAFETY MEASURES MAINTAINED, BED LOCKED AT LOWEST POSITION, WITH SIDE RAILS UP X 2. CALL LIGHT IS WITHIN REACH. WILL ENDORSE TO NEXT SHIFT FOR LUCIAN.
--- NOTE | 2021-12-22 19:45 | NUR ---
MS RN NOTES RECEIVED ON BED AWAKE,COUGHING, HOB ELEVATED,O2 AT3L/NC IN USED.BOTH WRIST ON BILATERAL SOFT RESTRAINTS FOR SAFETY,PRESENT IVF D5W AT 80ML/HR RATE INFUSING ON RIGHT HAND SALINE LOCK VIA IV PUMP.WITH NGT FEEDING AT 50ML/HR RATE,NO RESIDUAL VOLUME NOTED.DNR STATUS.WILL CONTINUE TO MONITOR
[2021-12-22 20:00] VITALS: BP 139/64
[2021-12-22] MEDS: ENOXAPARIN SODIUM 40 MG/0.4 ML DISP.SYRIN SQ SCH (20:36)
[2021-12-23] MEDS: IV D5W 1,000 ML IV PRN (02:36)
[2021-12-23] MEDS: CLINDAMYCIN 900 MG in IV D5W 50 ML IV SCH ×3 (04:27→21:04)
--- NOTE | 2021-12-23 06:37 | NUR ---
MS RN NOTES IN BED ,CALM AND QUIET, COUGH PRODUCTIVELY ON AND OFF,ORAL SUCTION DONE,REPOSITION PER PROTOCOL,DNR STATUS., IN NO ACUTE DISTRESS.
--- NOTE | 2021-12-23 07:39 | NUR ---
MS RN OPENING NOTES RECEIVED PATIENT IN BED, ASLEEP. PATIENT ON OXYGEN THERAPY AT @ LPM VIA NASAL CANULA; BREATHING EVEN AND UNLABORED; NO SOB NOTED. NO S/SX OF PAIN SUCH FACIAL GRIMACING, MOANING OR GUARDING NOTED. R HAND IV ACCESS PRESENT AND INTACT INFUSING D5W AT 80 MLS/HR. NG-TUBE PRESENT TO THE L NARIS RUNNING JEVITY 1.2 @ 50 MLS/HR. SAFETY PRECAUTIONS IN PLACE; BED IN LOW POSITION AND LOCKED, RAILS UP X2, CALL LIGHT WITHIN REACH. WILL CONTINUE TO MONITOR PATIENT.
[2021-12-23 08:08] VITALS: BP 148/66
[2021-12-23] MEDS: ALBUTEROL FS 2.5 MG/3 ML VIAL.NEB NEB PRN ×2 (08:37→23:54)
[2021-12-23] MEDS: PANTOPRAZOLE 40 MG/PACK PACK GT SCH (08:46)
[2021-12-23] MEDS: Z GUARD REMEDY 4 OZ OINT TP SCH (08:48)
[2021-12-23 12:34] LABS: CALCIUM, SERUM 8.7 mg/dL (8.5-10.1); CARBON DIOXIDE 30 mmol/L (21-32); CHLORIDE 112 mmol/L (98-107); CREATININE 1.4 mg/dL (0.6-1.3); GLUCOSE 110 mg/dL (74-106); POTASSIUM 3.9 mmol/L (3.5-5.1); SODIUM SERUM 148 mmol/L (136-145); UREA NITROGEN, BLOOD 12 mg/dL (7-18)
[2021-12-23 16:00] VITALS: BP 107/45
--- NOTE | 2021-12-23 18:43 | NUR ---
MS RN NOTES PATIENT SUCTIONED A LOT DURING THE DAY DUE TO THICK PHLEGM. SEEN BY RT AND SUCTIONED WELL.
--- NOTE | 2021-12-23 18:44 | NUR ---
MS RN CLOSING NOTES PATIENT REMAINS IN BED, ASLEEP. PATIENT ON OXYGEN THERAPY AT @3 LPM VIA NASAL CANULA; BREATHING EVEN AND UNLABORED; AT TIMES DIFFICULT DUE TO CONGESTION BUT SATURATING AT 97% . NO S/SX OF PAIN SUCH FACIAL GRIMACING, MOANING OR GUARDING NOTED. R HAND IV ACCESS PRESENT AND INTACT INFUSING D5W AT 80 MLS/HR. NG-TUBE PRESENT TO THE L NARIS RUNNING JEVITY 1.2 @ 50 MLS/HR. ALL NEEDS ATTENDED DURING THE DAY. SAFETY PRECAUTIONS IN PLACE; BED IN LOW POSITION AND LOCKED, RAILS UP X2, CALL LIGHT WITHIN REACH. WILL ENDORSE TO COUNTY EXTENSION AGENT NURSE FOR LUCIAN.
--- NOTE | 2021-12-23 19:05 | NUR ---
MS RN OPENING NOTES PATIENT REMAINS IN BED, ASLEEP. PATIENT ON OXYGEN THERAPY AT @3 LPM VIA NASAL CANULA; BREATHING EVEN AND UNLABORED; AT TIMES DIFFICULT DUE TO CONGESTION BUT SATURATING AT 97% . NO S/SX OF PAIN SUCH FACIAL GRIMACING, MOANING OR GUARDING NOTED. R HAND IV ACCESS PRESENT AND INTACT INFUSING D5W AT 80 MLS/HR. NG-TUBE PRESENT TO THE L NARIS RUNNING JEVITY 1.2 @ 50 MLS/HR. ALL NEEDS ATTENDED AT THIS TIME. SAFETY PRECAUTIONS IN PLACE; BED IN LOW POSITION AND LOCKED, RAILS UP X2, CALL LIGHT WITHIN REACH. HOB ELEVATED. WILL CONTINUE TO MONITOR.
[2021-12-23 20:00] VITALS: BP 113/71
[2021-12-23] MEDS: ENOXAPARIN SODIUM 40 MG/0.4 ML DISP.SYRIN SQ SCH (21:02)
[2021-12-24] MEDS: CLINDAMYCIN 900 MG in IV D5W 50 ML IV SCH ×3 (04:38→20:48)
--- NOTE | 2021-12-24 06:31 | NUR ---
MS RN CLOSING NOTES PATIENT REMAINS IN BED, ASLEEP. PATIENT ON OXYGEN THERAPY AT @3 LPM VIA NASAL CANULA; BREATHING EVEN AND UNLABORED; AT TIMES DIFFICULT DUE TO CONGESTION BUT SATURATING AT 97% . NO S/SX OF PAIN SUCH FACIAL GRIMACING, MOANING OR GUARDING NOTED. R HAND IV ACCESS PRESENT AND INTACT INFUSING D5W AT 80 MLS/HR. NG-TUBE PRESENT TO THE L NARIS RUNNING JEVITY 1.2 @ 50 MLS/HR. ALL NEEDS ATTENDED AT THIS TIME. SAFETY PRECAUTIONS IN PLACE; BED IN LOW POSITION AND LOCKED, RAILS UP X2, CALL LIGHT WITHIN REACH. HOB ELEVATED. WILL ENDORSE CRAE TO DAY SHIFT NURSE.
[2021-12-24 06:58] LABS: BASOPHILS % (AUTO) 0.2 % (0.0-2.0); EOSINOPHILS % (AUTO) 0.4 % (0.0-6.0); HEMATOCRIT 34 % (39-51); HEMOGLOBIN 11.1 g/dL (13.5-17.5); LYMPHOCYTES # (AUTO) 1.4 K/uL (0.8-4.8); LYMPHOCYTES % (AUTO) 6.5 % (20.0-44.0); MEAN CORPUSCULAR HGB CONC 33 g/dl (31.0-36.0); MEAN CORPUSCULAR VOLUME 86 fL (80-96); MONOCYTES # (AUTO) 1.4 K/uL (0.1-1.30); MONOCYTES % (AUTO) 6.5 % (2.0-12.0); NEUTROPHILS % (AUTO) 86.4 % (43.0-81.0); PLATELET COUNT (AUTO) 252 K/uL (150-450); RED BLOOD CELL COUNT(AUTO) 3.96 MIL/uL (4.5-6.0); WHITE BLOOD COUNT (AUTO) 20.9 K/uL (4.3-11.0)
--- NOTE | 2021-12-24 07:25 | NUR ---
MS RN OPENING NOTES PATIENT RECEIVED AWAKE IN BED IN NO ACUTE SIGNS OF DISTRESS. HOB ELEVATED. NON-VERBAL AND OPEN EYES. ON 02 VIA N/C AT 2LPM, BREATHING EVEN AND UNLABORED. IV ACCESS ON RIGHT HAND G #22 INTACT WITH IVF OF D5W INFUSING AT 80ML/HR, NO S/S OF INFILTRATION NOTED. NG-TUBE ON LEFT NARE IN PLACE WITH FEEDING OF JEVITY 1.2 AT 50ML/HR IN PROGRESS IN PROGRESS, TOLERATING WELL. ASPIRATION PRECAUTIONS MAINTAINED. PT WITH B/L SOFT WRIST RESTRAINTS IN PLACE, CIRCULATIONS WNL NOTED. SAFETY PRECAUTIONS IN PLACED: BED LOCKED AND IN LOWEST POSITION, SIDE RAILS UP X3 AND CALL LIGHT W/I REACH. WILL CONTINUE TO MONITOR PT ACCORDINGLY.
[2021-12-24 08:00] VITALS: BP 134/88
[2021-12-24] MEDS: PANTOPRAZOLE 40 MG/PACK PACK GT SCH (08:57)
[2021-12-24] MEDS: Z GUARD REMEDY 4 OZ OINT TP SCH (08:59)
[2021-12-24] MEDS: CEFEPIME 2 GM in IV D5W 100 ML IV SCH (13:43)
[2021-12-24 15:56] VITALS: BP 122/77
--- NOTE | 2021-12-24 16:44 | NUR ---
RN NOTES URINE SPECIMEN FOR CULTURE COLLECTED, CALLED LAB TO PICK-UP SPECIMEN.
--- NOTE | 2021-12-24 18:36 | NUR ---
MS RN CLOSING NOTES PATIENT IN BED ASLEEP AT THIS TIME, AROUSABLE TO TACTILE AND VERBAL STIMULI. PT IS NON-VERBAL AND OPEN EYES TO STIMULI. ON 02 VIA N/C AT 2LPM, BREATHING EVEN AND UNLABORED. IV ACCESS ON RIGHT HAND G #22 INTACT WITH IVF OF D5W INFUSING AT 80ML/HR, NO S/S OF INFILTRATION NOTED. NG-TUBE ON LEFT NARE IN PLACE WITH FEEDING OF JEVITY 1.2 AT 60ML/HR IN PROGRESS IN PROGRESS AT THIS TIME, TOLERATING WELL. ASPIRATION PRECAUTIONS MAINTAINED. PT WITH B/L SOFT WRIST RESTRAINTS IN PLACE, CIRCULATIONS WNL NOTED. PT TURNED AND REPOSITIONED Q 2HRS AND PRN. KEPT CLEAN, DRY AND COMFORTABLE. SAFETY PRECAUTIONS IN PLACED: BED LOCKED AND IN LOWEST POSITION, SIDE-RAILS UP X3 AND CALL LIGHT W/I REACH. WILL ENDORSE LUCIAN TO MACHINE OPERATOR PACKAGING NURSE.
--- NOTE | 2021-12-24 19:56 | NUR ---
MS RN OPENING NOTES PATIENT IN BED ASLEEP AT THIS TIME, AROUSABLE TO TACTILE AND VERBAL STIMULI. PT IS NON-VERBAL AND OPEN EYES TO STIMULI. ON 02 VIA N/C AT 2LPM, BREATHING EVEN AND UNLABORED. IV ACCESS ON RIGHT HAND G #22 INTACT WITH IVF OF D5W INFUSING AT 80ML/HR, NO S/S OF INFILTRATION NOTED. NG-TUBE ON LEFT NARE IN PLACE WITH FEEDING OF JEVITY 1.2 AT 60ML/HR IN PROGRESS AT THIS TIME, TOLERATING WELL. ASPIRATION PRECAUTIONS MAINTAINED. PT WITH B/L SOFT WRIST RESTRAINTS IN PLACE, CIRCULATIONS WNL NOTED.. KEPT CLEAN, DRY AND COMFORTABLE. SAFETY PRECAUTIONS IN PLACED: BED LOCKED AND IN LOWEST POSITION, SIDE-RAILS UP X3 AND CALL LIGHT W/I REACH. WILL CONTINUE TO MONITOR.
[2021-12-24 20:09] VITALS: BP 121/56
[2021-12-24] MEDS: ENOXAPARIN SODIUM 40 MG/0.4 ML DISP.SYRIN SQ SCH (20:48)
[2021-12-25] MEDS: CEFEPIME 2 GM in IV D5W 100 ML IV SCH ×2 (00:35→12:10)
[2021-12-25] MEDS: CLINDAMYCIN 900 MG in IV D5W 50 ML IV SCH ×2 (04:35→13:05)
--- NOTE | 2021-12-25 06:25 | NUR ---
MS RN CLOSING NOTES PATIENT IN BED ASLEEP AT THIS TIME, AROUSABLE TO TACTILE AND VERBAL STIMULI. PT IS NON-VERBAL AND OPEN EYES TO STIMULI. ON 02 VIA N/C AT 2LPM, BREATHING EVEN AND UNLABORED. IV ACCESS ON RIGHT HAND G #22 INTACT WITH IVF OF D5W INFUSING AT 80ML/HR, NO S/S OF INFILTRATION NOTED. NG-TUBE ON LEFT NARE IN PLACE WITH FEEDING OF JEVITY 1.2 AT 60ML/HR IN PROGRESS AT THIS TIME, TOLERATING WELL. ASPIRATION PRECAUTIONS MAINTAINED. PT WITH B/L SOFT WRIST RESTRAINTS IN PLACE, CIRCULATIONS WNL NOTED.. KEPT CLEAN, DRY AND COMFORTABLE. SAFETY PRECAUTIONS IN PLACED: BED LOCKED AND IN LOWEST POSITION, SIDE-RAILS UP X3 AND CALL LIGHT W/I REACH. WILL ENDORSE CARE TO DAY SHIFT NURSE.
[2021-12-25 06:37] LABS: BASOPHILS # (AUTO) 0.1 K/uL (0.0-0.2); BASOPHILS % (AUTO) 0.8 % (0.0-2.0); EOSINOPHILS % (AUTO) 2.8 % (0.0-6.0); HEMATOCRIT 34 % (39-51); HEMOGLOBIN 11.3 g/dL (13.5-17.5); LYMPHOCYTES # (AUTO) 1.3 K/uL (0.8-4.8); LYMPHOCYTES % (AUTO) 9.4 % (20.0-44.0); MEAN CORPUSCULAR HGB CONC 33 g/dl (31.0-36.0); MEAN CORPUSCULAR VOLUME 87 fL (80-96); MONOCYTES # (AUTO) 0.9 K/uL (0.1-1.30); MONOCYTES % (AUTO) 6.6 % (2.0-12.0); NEUTROPHILS # (AUTO) 11.2 K/uL (1.8-8.9); NEUTROPHILS % (AUTO) 80.4 % (43.0-81.0); PLATELET COUNT (AUTO) 152 K/uL (150-450); RED BLOOD CELL COUNT(AUTO) 3.95 MIL/uL (4.5-6.0)
[2021-12-25 06:40] LABS: CALCIUM, SERUM 8.2 mg/dL (8.5-10.1); CARBON DIOXIDE 28 mmol/L (21-32); CHLORIDE 110 mmol/L (98-107); GLUCOSE 152 mg/dL (74-106); POTASSIUM 3.8 mmol/L (3.5-5.1); SODIUM SERUM 143 mmol/L (136-145); UREA NITROGEN, BLOOD 19 mg/dL (7-18)
[2021-12-25 07:04] LABS: CREATININE 1.5 mg/dL (0.6-1.3)
[2021-12-25 08:00] VITALS: BP 147/63
[2021-12-25] MEDS: Z GUARD REMEDY 4 OZ OINT TP SCH (08:49)
[2021-12-25] MEDS: PANTOPRAZOLE 40 MG/PACK PACK GT SCH (08:49)
--- NOTE | 2021-12-25 09:55 | NUR ---
RN NOTES PATIENT'S RIGHT HAND IV ACCESS DISLODGED, NO BLEEDING NOTED. NEW IV ACCESS INSERTED IN LEFT HAND GAUGE #22. IVF CONTINUED ORDERED.
[2021-12-25 11:44] LABS: NEUTROPHILS % (MANUAL) 82 (42-76)
[2021-12-25 11:45] LABS: EOSINOPHILS % (MANUAL) 5 % (0-4); LYMPHOCYTES % (MANUAL) 6 % (16-48); MONOCYTES % (MANUAL) 4 % (0-11.0); REACTIVE LYMPHOCYTES 3 % (0-0)
--- NOTE | 2021-12-25 12:33 | NUR ---
ST swallow evaluation completed #3: D/W Syed VELOZ regarding the pt. Pt is alert, with NG tube. Sitting up and agreeable to be visited by ST. Resting open mouth position and possibly a mouth breather. Oral cavity is crusty/dried. Provided oral care and hygiene with suctioning using a yanker. pt with rigid and limited lingual ROM/movements/sensory/and overall decreased strength. Possible premature spillage should be noted, 2/2 decreased BOT strength and contraction Pt delay in hyolaryngeal elevation, difficulty coordinating breathing and swallowing. Pt with diminished sensory input within pharynx and oral cavity affecting the efficiency of a timely swallow response. Recommending: Continue NPO; meds non orally. Will possibly will require VFSS once stable aggressive oral care and hygiene to be provided 3x a day and keeping the HOB > 45 degrees at all times.
[2021-12-25 16:00] VITALS: BP 152/58
--- NOTE | 2021-12-25 18:57 | NUR ---
RN DISCHARGED NOTES PATIENT DISCHARGED HOME UNDER [facility] ARRANGED BY PT'S SWATHI. PT IS A/O X1 TO NAME AND NOW RESPONSIVE TO VERBAL COMMUNICATION IN DELAYED RESPONSE. IV ACCESS ON LEFT HAND G #22 REMOVED WITH NO ACTIVE BLEEDING NOTED, DRY PRESSURE APPLIED AT SITE. NG-TUBE ON LEFT NARE REMOVED W/O PROBLEM. PHOTOS OF SKIN ISSUES TAKEN AND FILED ON PT'S CHART. ALL BELONGINGS ACCOUNTED FOR AND SIGNED BELONGINGS LIST FORM. REPORT GIVEN TO [facility] EMT'S AND VERBALIZED UNDERSTANDING. EXIT FOLDER HANDED TO EMT'S. PT LEFT UNIT AT 1850 VIA GURNEY ACCOMPANIED BY 2 EMT'S FROM [facility]. MD AND CHARGE NURSE AWARE OF DISCHARGE.
== END 2021-12-25 18:50 | disposition hospice, home (50) | DRG 871 ==
LOC: ER 15:21 → TRANSITION 18:34 → MED 20:01 → TELE 20:48 → MED 12-22 15:00
PROVIDERS: ADMIT Nurse Practitioner Acute Care; ATTEND Nurse Practitioner Acute Care
DX: A41.9 Sepsis, unspecified organism (principal); G93.41 Metabolic encephalopathy; N17.0 Acute kidney failure with tubular necrosis; E44.1 Mild protein-calorie malnutrition; E87.0 Hyperosmolality and hypernatremia; E86.1 Hypovolemia; N40.0 Benign prostatic hyperplasia without lower urinary tract symptoms; Z86.73 Personal history of transient ischemic attack (TIA), and cerebral infarction without residual deficits; K21.9 Gastro-esophageal reflux disease without esophagitis; J44.9 Chronic obstructive pulmonary disease, unspecified; K11.20 Sialoadenitis, unspecified; Z68.25 Body mass index [BMI] 25.0-25.9, adult; F03.90 Unspecified dementia, unspecified severity, without behavioral disturbance, psychotic disturbance, mood disturbance, and anxiety; I25.10 Atherosclerotic heart disease of native coronary artery without angina pectoris; Z66 Do not resuscitate; E88.09 Other disorders of plasma-protein metabolism, not elsewhere classified; F20.9 Schizophrenia, unspecified; I10 Essential (primary) hypertension; I27.20 Pulmonary hypertension, unspecified; Z51.5 Encounter for palliative care; Z79.82 Long term (current) use of aspirin; Z95.1 Presence of aortocoronary bypass graft; Z91.14 Patient's other noncompliance with medication regimen; Z73.6 Limitation of activities due to disability; R13.10 Dysphagia, unspecified; V89.2XXS Person injured in unspecified motor-vehicle accident, traffic, sequela; F29 Unspecified psychosis not due to a substance or known physiological condition; Z20.822 Contact with and (suspected) exposure to COVID-19
CPT/HCPCS: 31720; 36415; 70450-TC; 70491-TC; 71045-TC; 80048-TC; 80061-TC; 80076-TC; 80202-TC; 83605-TC; 83735-TC; 84100-TC; 84484-TC; 85025-TC; 85730-TC; 87040-TC; 87081-TC; 87086-TC; 92526; 92611-TC; 94799-TC; 97112-TC; 97530-TC; C9113; C9803; G0378; J0692; J1650; J2543; J3370; J3480; J3490; J7030; J7042; J7050; J7060; J7070; Q9967